=== PATIENT | male | born 1960 | race American Indian/Alaskan Native ===

== ENCOUNTER 2016-07-01 08:39 | Inpatient (IN) | payer OTHER ==
[2016-07-01 08:56] VITALS: BMI 19.2
[2016-07-01] MEDS ORDERED: Albuterol-Ipratrop 3 mg / 0.5 (3 ml) UD IH STA ×2 (09:00→12:06)
--- NOTE | 2016-07-01 09:01 | ED PDOC ---
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 Patient states his symptoms is exacerbated when laying down flat. Patient notes fevers at night but denies any nausea, vomiting, diarrhea, abdominal pain, urinary symptoms, chest pain, cough or any other complaints. Patient reports his oncologist changed his medications 1 month ago. Denies hemoptysis. Denies headaches. Denies new leg pain or swelling. States symptoms have worsened since starting new chemotherapy several months ago. Denies bloody or dark urine or stool. PMD: Dr. Glover Oncologist: Dr. Cool Time/Duration: Other (1 month) Symptom Course: Worsening Quality: Other Context: Home Past Medical History - Provider Review Nursing Documentation Reviewed: Yes - Infectious Disease Hx of Infectious Diseases: None - Tetanus Immunization Tetanus Immunization: Unknown - Cardiac Hx Cardiac Disorders: Yes - Pulmonary Hx Lung Cancer: Yes - Neurological Hx Neurological Disorder: Yes Other/Comment: Syncopy 2013 - HEENT Hx HEENT Disorder: Yes Other/Comment: Wears glasses - Hematological/Oncological Hx Blood Transfusions: No Hx Blood Transfusion Reaction: No - Musculoskeletal/Rheumatological Hx Falls: Yes (2012) - Genitourinary/Gynecological Hx Genitourinary Disorders: Yes Other/Comment: Urinary retention - Psychiatric Hx Depression: No Hx Emotional Abuse: No Hx Physical Abuse: No Hx Substance Use: No - Surgical History Other/Comment: Rt. Facial - Anesthesia Hx Anesthesia Reactions: No - Suicidal Assessment Feels Threatened In Home Enviroment: No Family/Social History - Physician Review Nursing Documentation Reviewed: Yes Family/Social History: No Known Family HX Smoking Status: Never Smoked Hx Alcohol Use: No Hx Substance Use: No Hx Substance Use Treatment: No Allergies/Home Meds Allergies/Adverse Reactions: Allergies No Known Allergies Allergy (Verified 07/01/16 08:56) Home Medications: Home Meds Medication Instructions Recorded Confirmed Acyclovir [Zovirax] 400 mg PO DAILY 07/01/16 07/01/16 Calcium Citrate 1,000 mg PO DAILY 07/01/16 07/01/16 Dutasteride 0.5 mg PO DAILY 07/01/16 07/01/16 Megestrol Acetate [Megace] 40 mg PO DAILY 07/01/16 07/01/16 Multivitamin with Minerals [Men's 1 each PO DAILY 07/01/16 07/01/16 One Daily] Polyethylene Glycol 3350 [Laxa 1,530 gm PO PRN PRN 07/01/16 07/01/16 Clear] Silodosin [Rapaflo] 8 mg PO DAILY 07/01/16 07/01/16 oxyCODONE [oxycodone Hydrochloride] 20 mg PO PRN PRN 07/01/16 07/01/16 Review of Systems - Review of Systems Constitutional: Fatigue, Fevers Eyes: absent: Vision Changes ENT: absent: Hearing Changes, Sore Throat Respiratory: SOB. absent: Cough, Wheezing Cardiovascular: Palpitations, MALONEY. absent: Chest Pain, Edema Gastrointestinal: Appetite Changes. absent: Abdominal Pain, Diarrhea, Nausea, Vomiting, Hematochezia Genitourinary Male: absent: Dysuria, Frequency Musculoskeletal: Arthralgias. absent: Back Pain Skin: absent: Rash Neurological: absent: Headache, Dizziness, Focal Weakness, Gait Changes Endocrine: absent: Polyuria Physical Exam - Physical Exam Narrative Physical Exam (Text): Head: Atraumatic. Facial asymmetry likely secondary to underlying cancer. Eyes: PERRL. EOMI. Conjunctivae are not pale. ENT: Dry membranes are moist and intact. Oropharynx is clear and symmetric. No drooling. No pharyngeal erythema or exudates. Neck: Supple. Full ROM. No JVD. No lymphadenopathy. No meningeal signs. Cardiovascular: Tachycardic. Regular rhythm. No murmurs, rubs, or gallops. Distal pulses are 2+ and symmetric. Pulmonary/Chest: Tachypneic. Wheezing and rales at bases. No rhonchi. Abdominal: Soft and non-distended. There is no tenderness. No rebound, guarding, or rigidity. No organomegaly. Good bowel sounds. Back: No CVA tenderness. Extremities: No edema. No calf tenderness. No cyanosis. No clubbing. Full range of motion in all extremities. No calf tenderness. Skin: Skin is warm and dry. No petechiae. No purpura. Neurological: Alert, awake, and oriented. Motor and sensory exam intact. Psychiatric: Good eye contact. Normal interaction, affect, and behavior. 07/01/16 14:20 Vital Signs Reviewed: Yes Vital Signs Temp Pulse Resp BP Pulse Ox 07/01/16 14:25 98.9 F 112 H 20 98/67 L 07/01/16 13:59 98.2 F 114 H 20 106/57 L 100 07/01/16 13:00 122 H 20 140/68 98 07/01/16 12:00 98.6 F 120 H 20 114/66 96 07/01/16 10:40 98.2 F 118 H 22 106/70 97 07/01/16 09:14 98.0 F 117 H 24 108/74 90 L Temperature: Afebrile Pulse: Tachycardic Respiratory Rate: Tachypneic Appearance: Positive for: Non-Toxic, Comfortable, Ill-Appearing Pain Distress: Mild Mental Status: Positive for: Alert and Oriented X 3 Medical Decision Making ED Course and Treatment: 07/01/16 08:57 Impression: A 56 year old male with worsening shortness of breath. Has history of metstatic cancer, followed by Dr. Cool. Differential Diagnosis included but are not limited to: CHF vs. CAD vs. PNA vs. PE vs. Arrhythmia vs. Sepsis Plan: -- Chest xray -- EKG -- Labs -- Blood and Urine culture -- Urinalysis -- Duoneb and IV fluids -- Reassess and disposition Progress Notes: Patient on initial examination has family members present, supplements history. On examination he is tachypneic, tachycardic, hypoxic. Placed on supplemental oxygen. Patient with improved saturations. Denies chest pain. Reports chronic bony pain from cancer. Afebrie in ED. Denies pleuritic pain. Nebulizers administered. Abnormal chest xray reviewed: Report Date : 07/01/2016 09:12:21 Procedure: Chest xray Dictator : Bogdan Sandoval MD IMPRESSION: Bilateral pulmonary infiltrates, more extensive on the right. Bilateral pneumonia versus pulmonary edema. Small bilateral pleural effusion. Permanent pacemaker. I discussed abnormal chest xray with patient and patient's /family, ddx includes pneumonia, mediation induced pneumonities. Ordered CT angio for persistent tachycardia. Patient noted to be anemic, but no rectal bleeding or hemoptysis or hematuria reported. 07/01/16 11:[address] Clifford Cool, patients oncologist, who informs patients hgb is normally around 8.5. He reports patients chemotherapy medication can cause pneumonitis. He agrees with blood transfusion given persistent symptoms and prior history. This was discussed in length with family and patient, risks/benefits discussed with patient, agreeable to transfusion has signed consent. Report Date : 07/01/2016 12:54:41 PROCEDURE: CT Chest with contrast (Pulmonary Angiogram) Dictator : Bogdan Sandoval MD IMPRESSION: No evidence of large central pulmonary embolus. Evaluation for segmental and subsegmental pulmonary embolus is limited as detailed above. Diffuse right lower lobe ground-glass opacity. Multifocal right middle and right upper lobe ground-glass opacity and left upper lobe ground-glass opacity. Multifocal soft tissue densities in right lower lobe as well as small nodular soft tissue densities in left upper lobe, suspicious for neoplasm. Pleural- based soft tissue mass medial left upper lobe. Mediastinal and left hilar lymphadenopathy noted. Left pleural effusion and left lower lobe compressive atelectasis. Extensive widespread sclerotic bony metastasis. . I have updated patient and family with treatment plan and labs, xray findings. CT angio does not reveal large PE. Ground glass opacities noted. Given tachypnea and tachycardia, business architect consultation obtained, at this time will be admitted to telemetry. Case d/w Dr. Mckeon, covering for patient's PMD. Initial lactate unremarkable, afebrile, current exam not consistent with sepsis although risk noted. Reassessment Condition: Improving,but remains with symptoms - Lab Interpretations Lab Results: 07/01/16 09:00 07/01/16 09:00 Lab Results 07/01/16 10:07: Blood Type O POSITIVE, Antibody Screen Negative, Crossmatch See Detail, BBK History Checked Patient has bt 07/01/16 09:30: pO2 129 H, VBG pH 7.45 H, VBG pCO2 27.0 L, VBG HCO3 18.8 L, VBG Total CO2 19.6 L, VBG O2 Sat (Calc) 98.9 H, VBG Base Excess -3.8 L, VBG Potassium 3.0 L, Glucose 77, Lactate 0.8, FiO2 32.0, Sodium 141.0, Chloride 117.0 H, Venous Blood Potassium 3.0 L 07/01/16 09:00: Sodium 136, Potassium 3.7, Chloride 105, Carbon Dioxide 22, Anion Gap 13, BUN 9, Creatinine 0.7, Est GFR ( Amer) > 60, Est GFR (Non- Af Amer) > 60, Random Glucose 99, Calcium 8.3 L, Total Bilirubin 0.7, AST 49, ALT 26, Alkaline Phosphatase 212 H, Lactate Dehydrogenase 983 H, Total Creatine Kinase 370 H, CK-MB (CK-2) 2.6, CK-MB (CK-2) % Cancelled, Troponin I < 0.01, NT- Pro-B Natriuret Pep 313, Total Protein 6.9, Albumin 3.5, Globulin 3.4, Albumin/ Globulin Ratio 1.0 L 07/01/16 09:00: PT 13.4 H, INR 1.24 H, APTT 32.2 H 07/01/16 09:00: WBC 4.3 L, RBC 2.77 L, Hgb 7.7 L D, Hct 23.7 L, MCV 85.6, MCH 27.8, MCHC 32.5, RDW 24.3 H, Plt Count 156, MPV 9.3, Gran % 53.9, Lymph % (Auto ) 33.9, Mcdonald % (Auto) 9.2 H, Eos % (Auto) 1.4 L, Baso % (Auto) 1.6, Gran # 2.29 , Lymph # 1.4, Mcdonald # 0.4, Eos # 0.1, Baso # 0.07 I have reviewed the lab results: Yes - RAD Interpretation Radiology Orders: 07/01/16 08:59 CHEST PORTABLE [RAD] Stat 07/01/16 11:27 ANGIO CHEST PE PROTOCOL [CT] Stat [facility] Aide: Radiologist - EKG Interpretation EKG Interpretation (Text): 07/01/16 14:23 EKG at 08:58 sinus tachycardia, minimal voltage criteria for LVH Interpreted by ED Physician: Yes Type: 12 lead EKG - Medication Orders Current Medication Orders: Sodium Chloride (Sodium Chloride 0.9%) 1,000 mls @ 100 mls/hr IV .Q10H EDEL Last Admin: 07/01/16 09:20 Dose: 100 mls/hr Discontinued Medications Albuterol/Ipratropium (Duoneb 3 Mg/0.5 Mg (3 Ml) Ud) 3 ml IH STAT STA Stop: 07/01/16 09:01 Last Admin: 07/01/16 09:56 Dose: 3 ml Albuterol/Ipratropium (Duoneb 3 Mg/0.5 Mg (3 Ml) Ud) 3 ml IH STAT STA Stop: 07/01/16 12:07 Last Admin: 07/01/16 12:47 Dose: 3 ml Cefepime HCl (Maxipime 2gm) 2 gm in 100 mls @ 100 mls/hr IVPB STAT STA PRN Reason: Protocol Stop: 07/01/16 10:31 Last Admin: 07/01/16 09:56 Dose: 100 mls/hr Azithromycin (Zithromax 500mg In Ns) 500 mg in 250 mls @ 166.667 mls/hr IVPB STAT STA PRN Reason: Protocol Stop: 07/01/16 11:03 Last Admin: 07/01/16 11:27 Dose: 166.667 mls/hr Sodium Chloride (Sodium Chloride 0.9%) 500 mls @ 1,000 mls/hr IV .Q30M STA Stop: 07/01/16 11:40 Last Admin: 07/01/16 11:30 Dose: 1,000 mls/hr Iodixanol (Visipaque 320 Mg/Ml 100 Ml) Confirm Administered Dose 100 ml IV .STK- MED ONE Stop: 07/01/16 11:55 - Scribe Statement The provider has reviewed the documentation as recorded by the Scribe Mona Shane Provider Scribe Attestation: All medical record entries made by the Scribe were at my direction and personally dictated by me. I have reviewed the chart and agree that the record accurately reflects my personal performance of the history, physical exam, medical decision making, and the department course for this patient. I have also personally directed, reviewed, and agree with the discharge instructions and disposition. Disposition/Present on Arrival - Present on Arrival Any Indicators Present on Arrival: No History of DVT/PE: No History of Uncontrolled Diabetes: No Urinary Catheter: No History Surgical Site Infection Following: None - Disposition Have Diagnosis and Disposition been Completed?: Yes Diagnosis: Pneumonitis, Pneumonia, Anemia, Metastatic cancer Disposition: HOSPITALIZED Disposition Time: 10:00 Patient Plan: Admission, ICU Patient Problems: Current Active Problems Problem Status Onset Anemia Acute Metastatic cancer Acute Pneumonia Acute Pneumonitis Acute Condition: CRITICAL
--- NOTE | 2016-07-01 09:13 | RAD ---
HISTORY: sob COMPARISON: 11/18/2015 FINDINGS: LUNGS: Diffuse patchy right-sided pulmonary infiltrate and left basilar infiltrate. PLEURA: Probable very small bilateral pleural effusion. No pneumothorax. CARDIOVASCULAR: Normal heart size. Mild congestive change. Permanent pacemaker. OSSEOUS STRUCTURES: No significant abnormalities. VISUALIZED UPPER ABDOMEN: Normal. OTHER FINDINGS: None. IMPRESSION: Bilateral pulmonary infiltrates, more extensive on the right. Bilateral pneumonia versus pulmonary edema. Small bilateral pleural effusion. Permanent pacemaker.
[2016-07-01] MEDS: Sodium Chloride 0.9% 1,000 ML IV SCH ×3 (09:20→21:35)
[2016-07-01] MEDS ORDERED: Cefepime IV 2 gm in NS 2 GM/100 ML BAG IVPB STA (09:32)
[2016-07-01] MEDS ORDERED: Azithromycin 500MG/NS 250ml 250 ML IVPB STA (09:33)
[2016-07-01] MEDS ORDERED: Azithromycin 500MG/NS 250ml 500 MG/250 ML BAG IVPB STA (09:34)
[2016-07-01 09:39] LABS: ADD MANUAL DIFF? NO
[2016-07-01 09:40] LABS: VENOUS BLOOD GAS BASE EXCESS -3.8 mmol/L (0.0-2.0); VENOUS BLOOD PH 7.45 (7.32-7.43)
[2016-07-01 09:47] LABS: BASO # 0.07 K/mm3 (0.0-2.0); BASO % 1.6 % (0.0-3.0); EOS # 0.1 (0.0-0.7); EOS % 1.4 % (1.5-5.0); GRAN # 2.29 (1.4-6.5); GRAN % 53.9 % (50.0-68.0); LYMPH # 1.4 (1.2-3.4); LYMPH % 33.9 % (22.0-35.0); MEAN CELL VOLUME 85.6 fL (80.0-105.0); MEAN CORPUSCULAR HEMOGLOBIN 27.8 pg (25.0-35.0); MEAN CORPUSCULAR HGB CONC 32.5 g/dl (31.0-37.0); MEAN PLATELET VOLUME 9.3 fl (7.0-11.0); MONO # 0.4 (0.1-0.6); MONO % 9.2 % (1.0-6.0); PLATELET COUNT 156 10^3/uL (120.0-450.0); RED CELL DISTRIBUTION WIDTH 24.3 % (11.5-14.5); WHITE BLOOD COUNT 4.3 10^3/ul (4.5-11.0)
[2016-07-01 09:49] LABS: HEMATOCRIT 23.7 % (42.0-52.0)
[2016-07-01 10:01] LABS: ALKALINE PHOSPHATASE 212 U/L (38-133); ALT/SGPT 26 U/L (7-56); AST/SGOT 49 U/L (15-59); BILIRUBIN,TOTAL 0.7 mg/dL (0.2-1.3); BLOOD UREA NITROGEN 9 mg/dL (7-21); CALCIUM 8.3 mg/dL (8.4-10.5); CARBON DIOXIDE 22 mmol/L (21-33); CHLORIDE 105 mmol/L (98-107); GFR AFRICAN-AMERICAN > 60; GLUCOSE,RANDOM 99 mg/dL (70-110); INR 1.24 (0.93-1.08); PARTIAL THROMBOPLASTIN TIME 32.2 Seconds (23.7-30.8); POTASSIUM 3.7 mmol/L (3.6-5.0); SODIUM 136 mmol/L (132-148); TOTAL PROTEIN 6.9 g/dL (5.8-8.3)
[2016-07-01 10:18] LABS: TROPONIN I < 0.01 ng/mL
[2016-07-01] MEDS ORDERED: Sodium Chloride 0.9% 500 ML IV STA (11:11)
[2016-07-01] MEDS ORDERED: Iodixanol 320 MG/ML 100 ML BOTTLE IV ONE (11:54)
--- NOTE | 2016-07-01 12:37 | CARD ---
APPROVED REPORT EKG Measurement Heart [id number] [id number] <Conclusion> Sinus tachycardia Minimal voltage criteria for LVH, may be normal variant Borderline ECG
--- NOTE | 2016-07-01 12:56 | CT ---
PROCEDURE: CT Chest with contrast (Pulmonary Angiogram) HISTORY: r/o PE COMPARISON: None available. TECHNIQUE: Axial computed tomography images were obtained of the chest in the pulmonary arterial phase of enhancement. Coronal and sagittal reformatted images were created and reviewed. Intravenous contrast dose: 100 mL Visipaque 320 Radiation dose: Total exam DLP = 366.35 mGy-cm. This CT exam was performed using one or more of the following dose reduction techniques: Automated exposure control, adjustment of the mA and/or kV according to patient size, and/or use of iterative reconstruction technique. FINDINGS: PULMONARY ARTERIES: Examination limited for evaluation of segmental and subsegmental pulmonary artery branches due to respiratory motion artifact as well as due to beam hardening artifact arising from permanent pacemaker. No central or lobar pulmonary artery filling defect identified. AORTA: No acute findings. No thoracic aortic aneurysm. LUNGS: Extensive right lower lobe ground-glass opacity. Multifocal soft tissue density in right lower lobe suspicious for neoplasm or lamar consolidation from pneumonia. Multifocal ground-glass opacity right middle lobe and right upper lobe which may reflect infectious or inflammatory etiology. Mild multifocal left upper lobe ground-glass opacity as well as small soft tissue densities. Large pleural-based soft tissue mass in the left upper lobe, medially, measuring approximately 4.3 x 2.4 x 3.6 cm. There is left lower lobe compressive atelectasis. PLEURAL SPACES: Moderate left pleural effusion. Trace right pleural effusion. No pneumothorax. HEART: Normal heart size. LYMPH NODES: Left hilar lymphadenopathy. Mediastinal lymphadenopathy noted in the prevascular space sub carinal peritracheal space. . BONES, CHEST WALL: Extensive widespread sclerotic metastasis all visualized osseous structures. OTHER FINDINGS: Unremarkable. IMPRESSION: No evidence of large central pulmonary embolus. Evaluation for segmental and subsegmental pulmonary embolus is limited as detailed above. Diffuse right lower lobe ground-glass opacity. Multifocal right middle and right upper lobe ground-glass opacity and left upper lobe ground-glass opacity. Multifocal soft tissue densities in right lower lobe as well as small nodular soft tissue densities in left upper lobe, suspicious for neoplasm. Pleural-based soft tissue mass medial left upper lobe. Mediastinal and left hilar lymphadenopathy noted. Left pleural effusion and left lower lobe compressive atelectasis. Extensive widespread sclerotic bony metastasis. .
[2016-07-01] MEDS ORDERED: Potassium Chloride 20 mEq ER Tab PO ONE ×3 (15:10→20:30)
[2016-07-01] MEDS ORDERED: oxyCODONE 20 mg Immediate Release Tab PO PRN (15:35)
[2016-07-01] MEDS ORDERED: POLYETHYLENE GLYCOL 3350 17 GM/Dose PACKET PO PRN ×2 (15:56→16:05)
[2016-07-01] MEDS ORDERED: Albuterol-Ipratrop 3 mg / 0.5 (3 ml) UD IH PRN (16:30)
[2016-07-01] MEDS: Cefepime 1gm in NS 100ml 1 GM/100 ML BAG IVPB SCH (21:33)
[2016-07-01] MEDS: oxyCODONE 20 mg Immediate Release Tab PO PRN (21:36)
--- NOTE | 2016-07-01 21:38 | CON ---
DATE: 07/01/2016 REASON FOR CONSULTATION: Severe anemia, stage IV, head and neck cancer. HISTORY OF PRESENT ILLNESS: The patient is a 56-year-old male admitted to the hospital with worsening shortness of breath. 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 He has received several chemotherapeutic regimens including Erbitux. Recently he got Keytruda. He got 2 doses of Keytruda. He has worsening shortness of breath. CAT scan of the chest showed bilateral lung masses and infiltrates. He has chronic pain in the ribs and the jaw, for which he takes oxycodone and morphine. He did not have a BM for more than a week now. Appetite has decreased. He has lost weight. He feels fatigued. Denies any bleeding from any site. No fever. No cough with expectoration. No abdominal pain. No nausea, no vomiting. He has history of syncope, none recent. He also has history of enlarged prostate, currently on Flomax. No issues with urination. PAST MEDICAL HISTORY: Head and neck cancer, recurrent falls, syncope. PAST SURGICAL HISTORY: Related to head and neck cancer, right side of the face , resection of the tumor. FAMILY HISTORY: No positive family history in mother and father. PERSONAL HISTORY: Never smoked. No history of alcohol abuse. SOCIAL HISTORY: Lives at home with . ALLERGIES: No known drug allergies. HOME MEDICATIONS: Acyclovir 400 mg daily, Megace 40 mg daily, multivitamin, Rapaflo, oxycodone 20 mg p.r.n., morphine sulfate p.r.n. REVIEW OF SYSTEMS: As per HPI. Rest of 12-point system reviewed and negative. PHYSICAL EXAMINATION: GENERAL: Comfortable in bed, mild respiratory distress. VITAL SIGNS: Temperature 98 degrees Fahrenheit, heart rate is 117 per minute, respiratory rate 24 per minute, blood pressure 108/74, heart rate is 70 per minute, cachectic, tachypneic, tachycardia . HEENT: Oral mucosa moist. NECK: No lymphadenopathy. HEART: Tachycardia present. S1, S2 normal. CHEST: Air entry present, bilateral. Bilateral crepitations present. Bilateral rhonchi present. ABDOMEN: Soft, nontender, no hepatosplenomegaly. EXTREMITIES: No edema. CENTRAL NERVOUS SYSTEM: Alert, oriented x 3. No focal sensory or motor deficit. SKIN: No petechia, no rash. SPINE: Nontender. LABORATORY DATA: White count 4.3, hemoglobin 7.7, hematocrit 23.7, platelet count 156. Sodium 136, potassium 3.7, BUN 9, creatinine 0.7, glucose 99. CAT scan of the chest as per HPI. Chest x-ray bilateral infiltrate present. ASSESSMENT: 1. Severe anemia. 2. Stage IV head and neck cancer. 3. Bilateral lung infiltrate, possible pneumonitis related to chemo, infectious pneumonitis, bilateral. He has metastatic lesion in the lungs also. 4. Constipation related to narcotics. PLAN: Two units of blood transfusion. He received 1 unit so far. He will receive second dose of PRBCs. Bilateral lung infiltrates. Differential diagnosis chemical pneumonitis related to chemo, Keytruda, or infectious pneumonitis. He also has bilateral lung metastatic disease. He received a dose of cefepime and Zithromax in the ER. We will consult ID. We will start high dose steroids, Solu-Medrol 30 mg IV q. 12 hours. We will continue acyclovir 400 mg oral b.i.d. for herpes prophylaxis. Continue bronchodilator, Xopenex q. 4 hours p.r.n. We will give IV fluid as blood pressure was a little low. He is dehydrated clinically, at 100 mL an hour. Pain control with morphine sulfate 15 mg p.o. b.i.d., and oxycodone p.r.n. for severe pain. He can get morphine sulfate IV 2 mg q. 4 hours p.r.n. He has chronic constipation. Will give lactulose tomorrow. We will continue MiraLax for now. Discussed with the . Discussed with the patient. Thank you, Dr. Mckeon, for allowing us to participate in the patient's care. Hillary Ardon MD cc: [id number] TT: 07/01/2016 21:37:53 Confirmation # [id number] Dictation # [id number] silvestre [email or web address]
[2016-07-01] MEDS: MethylPREDNISolone 40 mg Vial IVP SCH (21:41)
[2016-07-01 22:35] LABS: PH,URINE 6.5 (4.7-8.0); URINE APPEARANCE CLEAR (CLEAR); URINE BILIRUBIN NEGATIVE (NEGATIVE); URINE BLOOD SMALL (NEGATIVE); URINE COLOR YELLOW (YELLOW); URINE GLUCOSE (UA) NEGATIVE (NEGATIVE); URINE KETONE NEGATIVE (NEGATIVE); URINE LEUKOCYTE ESTERASE NEGATIVE Leu/uL (NEGATIVE); URINE PROTEIN NEGATIVE mg/dL (<30 mg/dL); URINE UROBILINOGEN 0.2 E.U./dL (<1 E.U./dL)
[2016-07-01 22:49] LABS: URINE EPITHELIAL CELLS 0 - 2 /hpf (0-5); URINE WBC 0 - 2 /hpf (0-6)
[2016-07-02] MEDS: oxyCODONE 20 mg Immediate Release Tab PO PRN ×4 (01:58→19:00)
[2016-07-02] MEDS: Cefepime 1gm in NS 100ml 1 GM/100 ML BAG IVPB SCH ×3 (06:31→22:27)
[2016-07-02 06:48] LABS: ADD MANUAL DIFF? NO
[2016-07-02 07:19] LABS: ALB/GLOB RATIO 1.1 (1.1-1.8); ALKALINE PHOSPHATASE 202 U/L (38-133); ALT/SGPT 21 U/L (7-56); AST/SGOT 39 U/L (15-59); BILIRUBIN,TOTAL 1.2 mg/dL (0.2-1.3); BLOOD UREA NITROGEN 11 mg/dL (7-21); CALCIUM 7.1 mg/dL (8.4-10.5); CARBON DIOXIDE 21 mmol/L (21-33); CHLORIDE 110 mmol/L (98-107); CHOLESTEROL 130 mg/dL (130-200); GFR AFRICAN-AMERICAN > 60; GLUCOSE,RANDOM 122 mg/dL (70-110); MAGNESIUM 1.8 mg/dL (1.7-2.2); POTASSIUM 4.6 mmol/L (3.6-5.0); SODIUM 138 mmol/L (132-148); TOTAL PROTEIN 6.7 g/dL (5.8-8.3)
--- NOTE | 2016-07-02 07:21 | CON ---
DATE: 07/01/2016 REASON FOR CONSULTATION AND FOLLOWUP: Shortness of breath, rule out congestive heart failure, severe ly anemic. 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 PAST MEDICAL HISTORY: Significant for Staphylococcus aureus sepsis, status post RONEY, negative for en docarditis. PAST SURGICAL HISTORY: Significant for surgery of the maxillary sinus squamous cell carcinoma and quesada d reconstruction of the right side of the face, history of lung biopsy. Previous cardiac workup as follows: The patient had echocardiography/RONEY 11/21/2012 that showed norm al LV size, ejection fraction 65%, normal segmental wall motion, trace aortic regurgitation, no evide nce of mitral valve prolapse, trace to mild tricuspid regurgitation, RV systolic pressure 26, moderat e mitral regurgitation. PPM pacemaker lead noted in RA consistent with a ____. SOCIAL HISTORY: Denies smoking. Denies any history of alcohol abuse. FAMILY HISTORY: Hypertension to his brother. ALLERGIES: The patient has no known drug allergy. CURRENT MEDICATIONS: The patient is taking oxycodone, Rapaflo, multivitamin, Megace, acyclovir. REVIEW OF SYSTEMS: A 14-point review of systems as per HPI, negative. PHYSICAL EXAMINATION: VITAL SIGNS: Temperature afebrile, heart rate 111, blood pressure 123/70. HEENT: PERRLA. Extraocular muscles intact. NECK: Supple. No carotid bruits. No thyromegaly. CHEST: Clear to auscultation. HEART: S1, S2 regular. ABDOMEN: Soft. EXTREMITIES: Clubbing and cyanosis negative. LABORATORY DATA: Blood workup as follows: WBC 4.3, hemoglobin 7.7, hematocrit 23.7, platelet count 156. Chemistry shows sodium 130, potassium 3.0, chloride 105, carbon dioxide 23, anion gap of 13, BU N 9, creatinine 0.7. Troponin 0.01. IMPRESSION: Severe anemia, squamous cell carcinoma stage IV with metastasis, preserved left ventricu lar function, but last echo 11/2015, moderate mitral regurgitation, trace tricuspid regurgitation, ri ght ventricular systolic pressure 26, trace aortic regurgitation. RECOMMENDATION: The patient got 2 units of blood. We will give Lasix 40 after each unit of blood. Supplement potassium. We will get a lipid profile, TSH, hemoglobin A1c. We will follow with you. P robably, these symptoms secondary to anemia and underlying lung condition. Chest x-ray reviewed, suresh ateral pulmonary infiltrate ____ the right, small bilateral pleural effusion noted. CT chest was don e that shows no evidence of large PE; multifocal soft tissue density within the right lower lobe, ___ _ of malignancy. Probably, the sinus tachycardia also multifactorial too. We will put some beta blo cker, broad spectrum antibiotic. We will follow with you. Thank you, Dr. Mckeon, for providing the opportunity in taking care of the patient. Derrick Louis MD cc: [id number] TT: 07/02/2016 07:20:54 Confirmation # [id number] Dictation # [id number] tn
[2016-07-02 07:48] LABS: BASO # 0.03 K/mm3 (0.0-2.0); BASO % 0.7 % (0.0-3.0); EOS % 0.7 % (1.5-5.0); GRAN # 3.28 (1.4-6.5); GRAN % 76.2 % (50.0-68.0); HEMATOCRIT 29.2 % (42.0-52.0); LYMPH # 0.6 (1.2-3.4); LYMPH % 14.7 % (22.0-35.0); MEAN CELL VOLUME 83.9 fL (80.0-105.0); MEAN CORPUSCULAR HEMOGLOBIN 27.6 pg (25.0-35.0); MEAN CORPUSCULAR HGB CONC 32.9 g/dl (31.0-37.0); MEAN PLATELET VOLUME 9.2 fl (7.0-11.0); MONO # 0.3 (0.1-0.6); MONO % 7.7 % (1.0-6.0); PLATELET COUNT 137 10^3/uL (120.0-450.0); RED CELL DISTRIBUTION WIDTH 21.5 % (11.5-14.5); WHITE BLOOD COUNT 4.3 10^3/ul (4.5-11.0)
--- NOTE | 2016-07-02 08:29 | CON ---
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 The patient reports that he also felt wheezing. His symptoms were getting worse upon exertion. Some subjective fevers, but no nausea, vomiting, diarrhea, or constipation. No cough, no sputum production. PAST MEDICAL HISTORY: Hypertension, sinus cancer with mets. SOCIAL HISTORY: The patient is a lifelong nonsmoker. No alcohol or illicit drug abuse. FAMILY HISTORY: Noncontributory. ALLERGIES: NKDA. MEDICATIONS AT HOME: Oxycodone, PhosLo, multivitamins, Zovirax, calcium, Megace , dutasteride, acyclovir. REVIEW OF SYSTEMS: Revealed 12 organ system other than mentioned in history of present illness is negative. PHYSICAL EXAMINATION: VITAL SIGNS: Heart rate 115, blood pressure 106/57, respiratory rate 20, oxygen saturation 100% on 2 liters nasal cannula, temperature 98.2. HEAD AND NECK: Atraumatic. LUNGS: Clear to auscultation bilaterally. HEART: Regular rate and rhythm. S1, S2 normal. ABDOMEN: Soft, nontender, nondistended. MUSCULOSKELETAL: No C/C/E. NEUROLOGIC: The patient moves all extremities spontaneously. SKIN: Moist. PSYCHIATRIC: The patient is alert and oriented x 3. LABORATORY DATA: Sodium 136, potassium 3.7, chloride 105, carbon dioxide 22, BUN 9, creatinine 0.7, glucose 99, AST 49, ALT 26. Troponin less than 0.01. ProBNP 313. Lactate 0.8, pH 7.45. CAT scan showed ground glass opacities bilaterally intermingled with patchy consolidation. EKG did not show any acute ischemic changes. Based on the CAT scan, no pulmonary embolism. ASSESSMENT AND PLAN: This is a 56-year-old gentleman who presented to community -acquired pneumonia in the setting of recent chemotherapy and metastatic cancer. At the present time, he is mildly tachycardic and tachypneic which warrants admission to some monitored setting. Telemetry would be appropriate. However, at present time, we will proceed with broad spectrum antibiotics to cover for multidrug resistant pathogens as well as atypical pathogens. I will proceed with blood, urine and sputum culture. I will proceed with urine lwgionwlla and streptococcal antigen . Infectious disease consult would be reasonable. A pulmonary consult would be reasonable as well. I will also order CRP to see if additional benefit of low dose steroids would be there. No need for MICU at present time; however, if the patient deteriorates and develops respiratory failure or hemodynamic instability, or any other questions arise, please reconsult ICU. We will continue with deep venous thrombosis prophylaxis. We will continue to target euvolemia, euglycemia, normothermia and oxygen saturation more than 90%. ccm time 40 min Trevor Parker MD cc: [id number] TT: 07/01/2016 15:04:54 Confirmation # [id number] Dictation # [id number] dn MTDD
[2016-07-02] MEDS: Sodium Chloride 0.9% 1,000 ML IV SCH ×2 (08:31→20:41)
[2016-07-02] MEDS: Multivitamin Therapeutic Tab PO SCH (10:16)
[2016-07-02] MEDS: MethylPREDNISolone 40 mg Vial IVP SCH ×2 (10:57→22:28)
--- NOTE | 2016-07-02 11:36 | PN ---
DATE: 07/02/2016 REASON FOR CONSULTATION AND FOLLOWUP: Shortness of breath, rule out congestive heart failure; severe ly anemic, status post RBC transfusion. 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 Feels a lot better. Still feels mild congestion, but better than b efore. History of RONEY, was negative for endocarditis. RONEY dated 11/22/2015 shows ejection fraction 65%, normal segmental wall motion, trace aortic regurgitation, ____ tricuspid regurgitation, RV systo lic pressure at 26, moderate mitral regurgitation, history of pacemaker. PHYSICAL EXAMINATION: VITAL SIGNS: Temperature afebrile, heart rate 97, blood pressure 100/69. HEENT: PERRLA. Extraocular muscles intact. NECK: Supple. No carotid bruits. No thyromegaly. CHEST: Clear to auscultation. HEART: S1, S2 regular. ABDOMEN: Soft. EXTREMITIES: Clubbing and cyanosis negative. BLOOD WORKUP: As follows: WBC 4.____, hemoglobin 9.6, hematocrit 29.2, platelet count 137. Pelt Dropper ry shows sodium 136, potassium 4.____, chloride 110, carbon dioxide 21, anion gap of 12, BUN 11, crea tinine 0.7. Random sugar 122. TSH 0.6. Total cholesterol 130, LDL 69, HDL 40, triglycerides 69. T roponin 0.01. IMPRESSION: Anemia, status post packed red blood cell transfusion; decompensated congestive heart fa ilure secondary to anemia, diastolic dysfunction, preserved left ventricular function, moderate carlo l regurgitation, ____ tricuspid regurgitation, ejection fraction 65% on transesophageal echocardiogra m dated 11/22/2015, ____ tricuspid regurgitation, right ventricular systolic pressure at 26. Squamou s cell carcinoma with maxillary sinus with metastasis. RECOMMENDATION: Will give Lasix extra dose now. Supplement potassium. Discontinue telemetry. Thank you, Dr. Mckeon, for providing the opportunity in taking care of the patient. Will give 40 o f Lasix, supplement potassium again, and discontinue telemetry. Derrick Louis MD cc: [id number] TT: 07/02/2016 10:58:44 Confirmation # [id number] Dictation # [id number] 07/02/2016 10:35:16
--- NOTE | 2016-07-02 12:21 | CON ---
DATE: 07/02/2016 Seen and examined at the bedside this morning. REQUEST FOR CONSULT: Anemia. The chart was reviewed. HISTORY OF PRESENT ILLNESS: This is a 56-year-old male with a history of stage IV head and neck canc er, syncope, with mets to the bone and lung. Came to the Emergency Room with complaints of shortness of breath. The patient had a CAT scan of the chest showing bilateral lung masses and infiltrates. He does complain of rib and jaw pain which is chronic and is on pain medication. Does complain of co nstipation, has not had a bowel movement for over a week now. The patient was noted on admission to have low hemoglobin of 7.4. He received 2 units of packed RBC. He denies any melena or bright red b lood per rectum. No current complaints of hemoptysis or hematemesis. Never has had an endoscopy and he has refused colonoscopy in the past. The patient was on Keytruda. PAST MEDICAL HISTORY: As stated above. History of head and neck cancer with metastasis, hypertensio n, syncope. FAMILY HISTORY: Noncontributory at this time. SURGICAL HISTORY: Head and neck cancer surgery. Resection of the tumor, right side of the face. SOCIAL HISTORY: Denies ETOH or substance abuse. The patient denies smoking. ALLERGIES: No known drug allergies. MEDICATIONS: Reviewed as per MAR. REVIEW OF SYSTEMS: Systems reviewed with positive findings. He had a chest x-ray and that showed bilateral pulmonary infiltrates, more extensive on the right, bi lateral pneumonia versus pulmonary edema, small bilateral pleural effusions. Chest CT angio PE salina col showed no evidence of large central pulmonary embolism. There is diffuse right lower lobe ground glass opacity, multifocal right middle and upper lobe ground glass opacity and left upper lobe groun d glass opacity, mediastinal left hilar lymph nodes, extensive widespread sclerotic bony metastasis. VITAL SIGNS: Temperature is 98.2, blood pressure 100/69, pulse rate 96, respirations 20, 96% nasal c annula. LABORATORY DATA: WBC is 4.3, hemoglobin is 9.6, hematocrit 29.2, platelets of 137. PT is from 07/01 and this is 13.4, INR is 1.24, PTT 32.2. Sodium 138, K 4.6, BUN 11, creatinine is 0.7. Total biliru bin 1.2, AST 39, ALT 21, alk phos is 202. PHYSICAL EXAMINATION: HEENT: Sclera is anicteric. NECK: Supple. CARDIAC: S1, S2. LUNGS: Sounds with decreased breath sounds but positive air entry and positive rhonchi. ABDOMEN: With bowel sounds, soft, not distended, nontender on palpation. No organomegaly. EXTREMITIES: No edema. NEUROLOGIC: Awake, alert, and oriented. ASSESSMENT: This is a 56-year-old male with stage IV head and neck cancer with metastasis. He ____ to have bilateral lung infiltrates. Found to have severe anemia, status post blood transfusion, pack ed red blood cells. Constipation, likely secondary to narcotics. PLAN: Continue to trend H and H. He is on IV antibiotics -- cefepime, doxycycline. He is on Lasix. Bowel regimen salazar, getting lactulose and MiraLax. The patient is on morphine for pain and on IV f luids. He is also on Solu-Medrol. We will put him on some GI prophylaxis, Pepcid b.i.d. We will di scuss regarding CT scan of abdomen and pelvis with Dr. Mckeon. Thank you for this consult and for allowing us to participate in your patient's care. We will make f urther recommendations based upon patient's clinical course. The patient was seen and case discussed with Dr. Block. Mila VALLES cc: [id number] TT: 07/02/2016 12:20:23 Confirmation # [id number] Dictation # [id number] sn
[2016-07-02] MEDS: DUTASTERIDE 0.5 MG PO SCH (17:36)
--- NOTE | 2016-07-02 19:34 | CP.PCM.CON ---
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 The patient is also complaining of subjective fevers but no chills. He denies headache or dizziness, no chest pain, no rhinorrhea, no sore throat, no dysuria, no diarrhea, no abdominal pain , no extremity pain, no back pain, no hematuria. In the ED, the patient underwent CT chest which shows multifocal groundglass opacities and Infectious Diseases consult is requested to further evaluate and manage. Review of Systems - Review of Systems All systems: reviewed and no additional remarkable complaints except (as per HPI ) Past Patient History - Infectious Disease Hx of Infectious Diseases: None - Tetanus Immunizations Tetanus Immunization: Unknown - Past Social History Smoking Status: Never Smoked - CARDIAC Hx Cardiac Disorders: Yes - PULMONARY Hx Lung Cancer: Yes - NEUROLOGICAL Hx Neurological Disorder: Yes Other/Comment: Syncopy 2012 - HEENT Hx HEENT Problems: Yes Other/Comment: Wears glasses - HEMATOLOGICAL/ONCOLOGICAL Hx Blood Transfusions: No Hx Blood Transfusion Reaction: No - MUSCULOSKELETAL/RHEUMATOLOGICAL Hx Falls: Yes (2012) - GENITOURINARY/GYNECOLOGICAL Hx Genitourinary Disorders: Yes Other/Comment: Urinary retention - PSYCHIATRIC Hx Substance Use: No - SURGICAL HISTORY Other/Comment: Rt. Facial - ANESTHESIA Hx Anesthesia Reactions: No Meds Allergies/Adverse Reactions: Allergies Allergy/AdvReac Type Severity Reaction Status Date / Time No Known Allergies Allergy Verified 07/01/16 08:56 - Medications Medications: Current Medications Acyclovir (Zovirax) 400 mg PO DAILY E[facility] PRN Reason: Protocol Albuterol/Ipratropium (Duoneb 3 Mg/0.5 Mg (3 Ml) Ud) 3 ml IH [id number] PRN PRN Reason: Shortness of Breath Last Admin: 07/01/16 16:46 Dose: 3 ml Calcium Carbonate (Oscal) 1,000 mg PO DAILY EDEL Home Med (Home Med) 1 unit PO DAILY E[facility] Sodium Chloride (Sodium Chloride 0.9%) 1,000 mls @ 100 mls/hr IV .Q10H EDEL Last Admin: 07/01/16 17:01 Dose: 100 mls/hr Lactulose (Enulose) 30 gm PO HS EDEL Methylprednisolone (Solu-Medrol) 30 mg IVP Q12 [facility] Morphine Sulfate (Morphine Extended Release Tab) 15 mg PO Q12 PRN PRN Reason: Pain, severe (8-10) Multivitamins (Thera Tab) 1 tab PO DAILY EDEL Oxycodone HCl (Oxycodone Immediate Release Tab) 20 mg PO Q4H PRN PRN Reason: Pain, moderate (4-7) Polyethylene Glycol (Miralax) 17 gm PO DAILY PRN PRN Reason: Constipation Tamsulosin HCl (Flomax) 0.4 mg PO DAILY EDEL Physical Exam - Constitutional Appears: Non-toxic, No Acute Distress - Head Exam Head Exam: NORMAL INSPECTION - ENT Exam ENT Exam: Mucous Membranes Moist - Neck Exam Neck exam: Negative for: Lymphadenopathy, Meningismus - Respiratory Exam Respiratory Exam: Decreased Breath Sounds - Cardiovascular Exam Cardiovascular Exam: +S1, +S2 - GI/Abdominal Exam GI & Abdominal Exam: Soft. absent: Tenderness Results - Vital Signs Recent Vital Signs: Last Vital Signs Temp 98.4 F 07/01/16 17:58 Pulse 113 H 07/01/16 17:58 Resp 22 07/01/16 17:58 BP 130/70 07/01/16 17:58 Pulse Ox 100 07/01/16 13:59 - Labs Result Diagrams: 07/02/16 06:30 07/02/16 06:30 Assessment & Plan - Assessment and Plan (Free Text) Plan: Assessment Consider healthcare-associated pneumonia, multifocal history of persistent methicillin-sensitive Staph aureus bacteremia, most likely CLABSI (port-a-cath) S/P removal of the port, versus pacemaker lead infection/endocarditis stage 4 squamous cell cancer of the maxillary sinus with bone and lung mets S/P chemotherapy Plan reviewed CT chest which shows the multifocal groundglass opacities - started patient on Doxycycline and Cefepime pending blood, sputum cx, PCT Patient is not on chronic steroids making Pneumocystis unlikely Will follow clinically
--- NOTE | 2016-07-02 20:17 | CP.PCM.CON ---
History of Present Illness - History of Present Illness History of Present Illness: Oncology consult Referred by Dr. Mckeon for h/o head and neck cancer HPI- Mr Duque is 56 y/o M with h/o stage IV sinus cancer with mets to lung and bones who was admitted with worsening SOB and cough. CT Chest showed multifocal ground glass opacity in bilateral lungs, possible consolidation in RLL, pleural based soft tissue mass in left upper lobe, left pleural effusion and lymphadenopathy. His PET scan from 05/23/16 showed bilateral lung nodules with pleural effusion and lymphadenopathy. He was started on antibiotics for possible pneumonia. He is feeling better now. He denies any chest pain, abdominal pain, leg swelling. He has been afebrile in hospital. Regarding his malignancy, he has received Docetaxel and Erbitux before and is currently on Keytruda, last dose on 06/18 (2 doses so far) Review of Systems - Review of Systems All systems: reviewed and no additional remarkable complaints except Review of Systems: as in HPI Past Patient History - Infectious Disease Hx of Infectious Diseases: None - Tetanus Immunizations Tetanus Immunization: Unknown - Past Social History Smoking Status: Never Smoked - CARDIAC Hx Cardiac Disorders: Yes - PULMONARY Hx Lung Cancer: Yes - NEUROLOGICAL Hx Neurological Disorder: Yes Other/Comment: Syncopy 2013 - HEENT Hx HEENT Problems: Yes Other/Comment: Wears glasses - HEMATOLOGICAL/ONCOLOGICAL Hx Blood Transfusions: No Hx Blood Transfusion Reaction: No - MUSCULOSKELETAL/RHEUMATOLOGICAL Hx Falls: Yes (2012) - GENITOURINARY/GYNECOLOGICAL Hx Genitourinary Disorders: Yes Other/Comment: Urinary retention - PSYCHIATRIC Hx Substance Use: No - SURGICAL HISTORY Other/Comment: Rt. Facial - ANESTHESIA Hx Anesthesia Reactions: No Meds Allergies/Adverse Reactions: Allergies Allergy/AdvReac Type Severity Reaction Status Date / Time No Known Allergies Allergy Verified 07/01/16 08:56 - Medications Medications: Current Medications Acyclovir (Zovirax) 400 mg PO DAILY EDEL PRN Reason: Protocol Last Admin: 07/02/16 10:16 Dose: 400 mg Albuterol/Ipratropium (Duoneb 3 Mg/0.5 Mg (3 Ml) Ud) 3 ml IH [id number] PRN PRN Reason: Shortness of Breath Last Admin: 07/01/16 16:46 Dose: 3 ml Calcium Carbonate (Oscal) 1,000 mg PO DAILY EDEL Last Admin: 07/02/16 10:16 Dose: 1,000 mg Famotidine (Pepcid) 20 mg IVP DAILY [facility] Last Admin: 07/02/16 14:19 Dose: 20 mg Furosemide (Lasix) 40 mg IV DAILY [facility] Stop: 07/03/16 23:59 Last Admin: 07/02/16 10:57 Dose: 40 mg Furosemide (Lasix) 40 mg PO DAILY [facility] Home Med (Home Med) 1 unit PO DAILY [facility] Last Admin: 07/02/16 17:36 Dose: Not Given Sodium Chloride (Sodium Chloride 0.9%) 1,000 mls @ 100 mls/hr IV .Q10H [facility] Last Admin: 07/02/16 08:31 Dose: 100 mls/hr Doxycycline Hyclate 100 mg/ (Sodium Chloride) 100 mls @ 100 mls/hr IVPB Q12 [facility] PRN Reason: Protocol Stop: 07/08/16 22:01 Last Admin: 07/02/16 10:16 Dose: 100 mls/hr Cefepime HCl (Maxipime 1gm) 1 gm in 100 mls @ 100 mls/hr IVPB Q8 [facility] PRN Reason: Protocol Last Admin: 07/02/16 14:54 Dose: 100 mls/hr Lactulose (Enulose) 30 gm PO HS [facility] Last Admin: 07/02/16 10:17 Dose: 30 gm Methylprednisolone (Solu-Medrol) 30 mg IVP Q12 [facility] Last Admin: 07/02/16 10:57 Dose: 30 mg Morphine Sulfate (Morphine Extended Release Tab) 15 mg PO Q12 PRN PRN Reason: Pain, severe (8-10) Multivitamins (Thera Tab) 1 tab PO DAILY [facility] Last Admin: 07/02/16 10:16 Dose: 1 tab Oxycodone HCl (Oxycodone Immediate Release Tab) 20 mg PO Q4H PRN PRN Reason: Pain, moderate (4-7) Last Admin: 07/02/16 19:00 Dose: 20 mg Polyethylene Glycol (Miralax) 17 gm PO DAILY PRN PRN Reason: Constipation Tamsulosin HCl (Flomax) 0.4 mg PO DAILY [facility] Last Admin: 07/02/16 10:16 Dose: 0.4 mg Physical Exam - Head Exam Head Exam: ATRAUMATIC, NORMAL INSPECTION - Eye Exam Eye Exam: EOMI, PERRL - Neck Exam Neck exam: Negative for: Lymphadenopathy - Respiratory Exam Respiratory Exam: Decreased Breath Sounds, Rhonchi - Cardiovascular Exam Cardiovascular Exam: REGULAR RHYTHM - GI/Abdominal Exam GI & Abdominal Exam: Normal Bowel Sounds, Soft. absent: Organomegaly - Extremities Exam Extremities exam: Negative for: pedal edema - Neurological Exam Neurological exam: Alert, Oriented x3 Results - Vital Signs Recent Vital Signs: Last Vital Signs Temp 98.7 F 07/02/16 18:58 Pulse 102 H 07/02/16 18:58 Resp 20 07/02/16 18:58 BP 120/77 07/02/16 18:58 Pulse Ox 96 07/02/16 06:00 - Labs Result Diagrams: 07/02/16 06:30 07/02/16 06:30 Labs: Laboratory Results - last 24 hr 07/01/16 07/01/16 07/02/16 22:25 22:25 06:30 WBC 4.3 L RBC 3.48 L Hgb 9.6 L Hct 29.2 L MCV 83.9 MCH 27.6 MCHC 32.9 RDW 21.5 H Plt Count 137 MPV 9.2 Gran % 76.2 H Lymph % (Auto) 14.7 L Dickenson % (Auto) 7.7 H Eos % (Auto) 0.7 L Baso % (Auto) 0.7 Gran # 3.28 Lymph # 0.6 L Dickenson # 0.3 Eos # 0.0 Baso # 0.03 Sodium Potassium Chloride Carbon Dioxide Anion Gap BUN Creatinine Est GFR ( Amer) Est GFR (Non-Af Amer) Random Glucose Hemoglobin A1c Calcium Phosphorus Magnesium Total Bilirubin AST ALT Alkaline Phosphatase Total Protein Albumin Globulin Albumin/Globulin Ratio Triglycerides Cholesterol LDL Cholesterol Direct HDL Cholesterol TSH 3rd Generation Urine Color Yellow Urine Appearance Clear Urine pH 6.5 Ur Specific [place] 1.010 Urine Protein Negative Urine Glucose (UA) Negative Urine Ketones Negative Urine Blood Small H Urine Nitrate Negative Urine Bilirubin Negative Urine Urobilinogen 0.2 Ur Leukocyte Esterase Negative Urine RBC 5 - 10 Urine WBC 0 - 2 Ur Epithelial Cells 0 - 2 Ur L.pneumophila Ag Negative 07/02/16 07/02/16 07/02/16 06:30 06:30 06:30 WBC RBC Hgb Hct MCV MCH MCHC RDW Plt Count MPV Gran % Lymph % (Auto) Dickenson % (Auto) Eos % (Auto) Baso % (Auto) Gran # Lymph # Dickenson # Eos # Baso # Sodium 138 Potassium 4.6 Chloride 110 H Carbon Dioxide 21 Anion Gap 12 BUN 11 Creatinine 0.7 Est GFR ( Amer) > 60 Est GFR (Non-Af Amer) > 60 Random Glucose 122 H Hemoglobin A1c 6.0 Calcium 7.1 L Phosphorus 3.0 Magnesium 1.8 Total Bilirubin 1.2 AST 39 ALT 21 Alkaline Phosphatase 202 H Total Protein 6.7 Albumin 3.4 Globulin 3.2 Albumin/Globulin Ratio 1.1 Triglycerides 49 Cholesterol 130 LDL Cholesterol Direct 69 HDL Cholesterol 40 TSH 3rd Generation 0.60 Urine Color Urine Appearance Urine pH Ur Specific [place] Urine Protein Urine Glucose (UA) Urine Ketones Urine Blood Urine Nitrate Urine Bilirubin Urine Urobilinogen Ur Leukocyte Esterase Urine RBC Urine WBC Ur Epithelial Cells Ur L.pneumophila Ag Assessment & Plan - Assessment and Plan (Free Text) Assessment: h/o Stage IV Sinus Carcinoma -Currently on Keytruda Admitted with SOB. Differential include pneumonia, Keytruda induced pneumonitis , infectious pneumonitis, malignancy etc. Started on steroids, antibiotics and bronchodilators. He is clinically stable and getting better now. Will continue current management. He will follow up with Dr. Cool as outpatient to decide on further treatment after discharge. His Hb is better after blood transfusion. Hb 9.6 today. He may benefit from IV iron/ erythropoeitic agents as outpatient. Continue to monitor blood counts daily. Thank you for the consult Joel Balbuena - Date & Time Date: 07/02/16 Time: 18:17
[2016-07-02] MEDS: Morphine 15 mg SR Tab PO PRN (20:41)
--- NOTE | 2016-07-02 22:51 | CP.PCM.PN ---
Subjective - Date & Time of Evaluation Date of Evaluation: 07/02/16 Time of Evaluation: 10:00 - Subjective Subjective: Patient with Stage IV head and neck Cancer admitted with B/L pneumonia, B/L lung masses. No fever. Responded to steroids. he was recently started on Keytruda that can cause autoimmune pneumonitis. Shortness of breath improved. No expectorant. On IV antibiotics. Pain controlled with current meds. Hemoglobin improved after PRBC transfusion. has malignancy induced cachexia. oral intake is fair. Objective - Vital Signs/Intake and Output Vital Signs (last 24 hours): Temp Pulse Resp BP Pulse Ox 98.7 F 102 H 20 120/77 96 07/02/16 18:58 07/02/16 18:58 07/02/16 18:58 07/02/16 18:58 07/02/16 06:00 - Medications Medications: Current Medications Acyclovir (Zovirax) 400 mg PO DAILY EDEL PRN Reason: Protocol Last Admin: 07/02/16 10:16 Dose: 400 mg Albuterol/Ipratropium (Duoneb 3 Mg/0.5 Mg (3 Ml) Ud) 3 ml IH [id number] PRN PRN Reason: Shortness of Breath Last Admin: 07/01/16 16:46 Dose: 3 ml Calcium Carbonate (Oscal) 1,000 mg PO DAILY [facility] Last Admin: 07/02/16 10:16 Dose: 1,000 mg Famotidine (Pepcid) 20 mg IVP DAILY [facility] Last Admin: 07/02/16 14:19 Dose: 20 mg Furosemide (Lasix) 40 mg IV DAILY EDEL Stop: 07/03/16 23:59 Last Admin: 07/02/16 10:57 Dose: 40 mg Furosemide (Lasix) 40 mg PO DAILY [facility] Home Med (Home Med) 1 unit PO DAILY [facility] Last Admin: 07/02/16 17:36 Dose: Not Given Sodium Chloride (Sodium Chloride 0.9%) 1,000 mls @ 100 mls/hr IV .Q10H EDEL Last Admin: 07/02/16 20:41 Dose: 100 mls/hr Doxycycline Hyclate 100 mg/ (Sodium Chloride) 100 mls @ 100 mls/hr IVPB Q12 EDEL PRN Reason: Protocol Stop: 07/08/16 22:01 Last Admin: 07/02/16 22:28 Dose: 100 mls/hr Cefepime HCl (Maxipime 1gm) 1 gm in 100 mls @ 100 mls/hr IVPB Q8 EDEL PRN Reason: Protocol Last Admin: 07/02/16 22:27 Dose: 100 mls/hr Lactulose (Enulose) 30 gm PO HS [facility] Last Admin: 07/02/16 22:27 Dose: 30 gm Methylprednisolone (Solu-Medrol) 30 mg IVP Q12 [facility] Last Admin: 07/02/16 22:28 Dose: 30 mg Morphine Sulfate (Morphine Extended Release Tab) 15 mg PO Q12 PRN PRN Reason: Pain, severe (8-10) Last Admin: 07/02/16 20:41 Dose: 15 mg Multivitamins (Thera Tab) 1 tab PO DAILY [facility] Last Admin: 07/02/16 10:16 Dose: 1 tab Oxycodone HCl (Oxycodone Immediate Release Tab) 20 mg PO Q4H PRN PRN Reason: Pain, moderate (4-7) Last Admin: 07/02/16 19:00 Dose: 20 mg Polyethylene Glycol (Miralax) 17 gm PO DAILY PRN PRN Reason: Constipation Tamsulosin HCl (Flomax) 0.4 mg PO DAILY [facility] Last Admin: 07/02/16 10:16 Dose: 0.4 mg - Labs Labs: 07/02/16 06:30 07/02/16 06:30 PT 13.4 Seconds (9.9-11.8) H 07/01/16 09:00 INR 1.24 (0.93-1.08) H 07/01/16 09:00 APTT 32.2 Seconds (23.7-30.8) H 07/01/16 09:00 - Constitutional Appears: Cachectic - Head Exam Head Exam: ATRAUMATIC, NORMAL INSPECTION, NORMOCEPHALIC - Eye Exam Eye Exam: Normal appearance Pupil Exam: NORMAL ACCOMODATION - ENT Exam ENT Exam: Mucous Membranes Moist, Normal Exam - Neck Exam Neck Exam: Full ROM, Normal Inspection - Respiratory Exam Respiratory Exam: Rales, Rhonchi, Respiratory Distress, NORMAL BREATHING PATTERN - Cardiovascular Exam Cardiovascular Exam: REGULAR RHYTHM, +S1, +S2 - GI/Abdominal Exam GI & Abdominal Exam: Soft, Normal Bowel Sounds - Extremities Exam Extremities Exam: Normal Capillary Refill, Normal Inspection - Back Exam Back Exam: NORMAL INSPECTION - Neurological Exam Neurological Exam: Alert, Awake, CN II-XII Intact, Normal Gait, Oriented x3 - Psychiatric Exam Psychiatric exam: Normal Affect, Normal Mood - Skin Skin Exam: Intact, Normal Color, Warm Assessment and Plan - Assessment and Plan (Free Text) Assessment: 1. Stage IV Head and neck Cancer : recently started on Keytruda. Autoimmune pneumonitis. On IV antibiotics as per ID. respiratory distress improved. Pulmonary consult Dr. Thrasher requested. Continue bronchodialtors. 2. Anemia : related to malignancy, iron deficiency, cachexia. s/p PRBC transfusion. Hb/Hct stable. 3. Cachexia : malignancy related. 4. pain : controlled on current meds. continue same regimen. 5. renal : BUN, creatinine normal. Thank you Dr. Mckeon for allowing us to participate in his care.
[2016-07-03] MEDS: oxyCODONE 20 mg Immediate Release Tab PO PRN ×5 (01:41→21:39)
--- NOTE | 2016-07-03 02:23 | CON ---
DATE: 07/02/2016 ADDENDUM The patient was seen and evaluated earlier. The patient is admitted with a history of head and neck cancer metastatic to the bone and lungs, had multiple chemotherapeutic regimen including Erbitux, rec ently on Keytruda. The patient is admitted with increased abdominal pain, shortness of breath. Admi tted with shortness of breath, constipation and weakness. The patient was found to have a low hemogl obin of 7.7 and has received the transfusion and appears more comfortable now. On examination abdome n is soft. No obvious tenderness. IMPRESSION: This 56-year-old patient with stave IV head and neck cancer with metastatic bilateral karo ng infiltrates admitted with severe anemia, status post transfusion and no obvious bleeding per rectu m. The patient is also constipated probably secondary to narcotics. RECOMMENDATIONS: 1. Continue the antibiotics present treatment. 2. The patient does have significant anemia in this metastatic disease in patient. It would be reas onable to get a CT with p.o. contrast to further evaluate. The patient has been followed by the niranjan tologist. Thank you very much for allowing us to participate in the care of the patient. Ambika Block MD cc: [id number] TT: 07/03/2016 02:22:40 Confirmation # [id number] Dictation # [id number] an
[2016-07-03] MEDS: Cefepime 1gm in NS 100ml 1 GM/100 ML BAG IVPB SCH ×3 (05:59→21:31)
[2016-07-03 06:33] LABS: ADD MANUAL DIFF? NO
[2016-07-03 06:51] LABS: BASO # 0.01 K/mm3 (0.0-2.0); BASO % 0.2 % (0.0-3.0); EOS % 0.2 % (1.5-5.0); GRAN # 3.91 (1.4-6.5); GRAN % 68.5 % (50.0-68.0); HEMATOCRIT 28.4 % (42.0-52.0); LYMPH # 1.4 (1.2-3.4); LYMPH % 23.6 % (22.0-35.0); MEAN CELL VOLUME 83.8 fL (80.0-105.0); MEAN CORPUSCULAR HEMOGLOBIN 27.7 pg (25.0-35.0); MEAN CORPUSCULAR HGB CONC 33.1 g/dl (31.0-37.0); MEAN PLATELET VOLUME 9.6 fl (7.0-11.0); MONO # 0.4 (0.1-0.6); MONO % 7.5 % (1.0-6.0); PLATELET COUNT 144 10^3/uL (120.0-450.0); RED CELL DISTRIBUTION WIDTH 21.3 % (11.5-14.5); WHITE BLOOD COUNT 5.7 10^3/ul (4.5-11.0)
[2016-07-03] MEDS: Morphine 15 mg SR Tab PO PRN ×2 (06:56→17:53)
[2016-07-03] MEDS ORDERED: Barium Sulfate Susp 2.1% w/v, 2.0% w/w 450 mL Bottle PO ONE (06:56)
[2016-07-03 07:25] LABS: BLOOD UREA NITROGEN 15 mg/dL (7-21); CALCIUM 7.2 mg/dL (8.4-10.5); CARBON DIOXIDE 23 mmol/L (21-33); CHLORIDE 109 mmol/L (98-107); GFR AFRICAN-AMERICAN > 60; GLUCOSE,RANDOM 101 mg/dL (70-110); MAGNESIUM 1.9 mg/dL (1.7-2.2); PHOSPHOROUS 3.1 mg/dL (2.5-4.5); POTASSIUM 4.2 mmol/L (3.6-5.0); SODIUM 138 mmol/L (132-148)
[2016-07-03] MEDS: DUTASTERIDE 0.5 MG PO SCH ×2 (10:15→14:41)
[2016-07-03] MEDS: MethylPREDNISolone 40 mg Vial IVP SCH ×2 (10:19→21:31)
[2016-07-03] MEDS: Multivitamin Therapeutic Tab PO SCH (10:19)
[2016-07-03] MEDS ORDERED: DUTASTERIDE 0.5 MG PO SCH (10:25)
[2016-07-03] MEDS: Sodium Chloride 0.9% 1,000 ML IV SCH (10:32)
--- NOTE | 2016-07-03 12:00 | CON ---
DATE: 07/03/2016 We were asked by Dr. Mckeon, oral hygienist, to evaluate and treat this 56-year-old man who was admitted to [facility] with chief complaint of cough and shortness of breath. The patient was seen and evaluated by Dr. Parker, director of intensive care unit, who found that patient is not requiring intensive care unit and therefore, he was transferred to the floor. Currently, is being evaluated on the medical floor. HISTORY OF PRESENT ILLNESS: The patient is known with history of sinus cancer, metastasis to lungs a nd bones. He presented to Emergency Room with shortness of breath, which developed over the past wee k. He also heard wheezing. He had some fevers, but this was not well documented. Occasional cough. PAST MEDICAL HISTORY: Hypertension, sinus cancer with metastasis. SOCIAL HISTORY: The patient is a lifelong smoker, no alcohol, no illicit drugs. FAMILY HISTORY: Noncontributory. No history of inherited diseases. ALLERGIES: No known allergies. HOME MEDICATIONS: Include oxycodone, PhosLo, multivitamins, Zovirax, calcium, Megace and acyclovir. REVIEW OF SYSTEMS: Conducted by reviewing all sources: RESPIRATORY: See history of present illness. CARDIOVASCULAR: Negative for chest pain or palpitations. GASTROINTESTINAL: Negative for nausea, vomiting or diarrhea. The rest of the systems were reviewed and found to be negative. PHYSICAL EXAMINATION: VITAL SIGNS: His heart rate 115, blood pressure 106/57, respirations 20, oxygen saturation is 100% o n 2 liters. HEAD: Atraumatic and normocephalic. LUNGS: Few rhonchi at bases. No wheezing. HEART: Regular rate and rhythm. S1, S2. GASTROINTESTINAL: Soft, nontender, no organomegaly. EXTREMITIES: No pedal edema. NEUROLOGIC: Limited at present time. SKIN: Clear with no cyanosis and no skin rash. NEUROLOGIC: No focal deficits. LABORATORY DATA: ProBNP is 313, slightly elevated. Electrolytes were within normal limits. Kidney functions are normal. Liver function test slightly elevated. Serum lactate is normal. CAT scan revealed ground glass opacities bilaterally and few areas of patchy consolidations. No pulm onary emboli. ASSESSMENT: The patient presents with a picture of community-acquired pneumonia in the setting of re cent chemotherapy and metastatic cancer. At the present time, he is mildly tachycardic and tachypnei c. Telemetry was considered most appropriate. He was started on broad spectrum antibiotic. Will fo llow blood cultures, urine cultures. His pulmonary status is currently stable. He does not have res piratory insufficiency. His oxygen saturations are acceptable. He does not need ICU at this time. I have reviewed this with Dr. Parker. We will follow closely. Tyrell Sow MD cc: [id number] TT: 07/03/2016 11:57:37 Confirmation # [id number] Dictation # [id number] en 07/03/2016 10:59:09
--- NOTE | 2016-07-03 15:01 | CT ---
PROCEDURE: CT Abdomen and Pelvis with contrast HISTORY: H N cancer,severe anemia r/o intra abd mass COMPARISON: None. TECHNIQUE: Contrast dose: Oral contrast only. Radiation dose: Total exam DLP = 249.87 mGy-cm. This CT exam was performed using one or more of the following dose reduction techniques: Automated exposure control, adjustment of the mA and/or kV according to patient size, and/or use of iterative reconstruction technique. FINDINGS: LOWER THORAX: Incompletely visualized infiltrates both lower lobes. Small bilateral pleural effusions left larger than right. LIVER: Low-attenuation lesion in the dome of the liver incompletely visualized measuring approximately 2 cm. No additional hepatic masses identified. GALLBLADDER AND BILE DUCTS: Vicarious excretion of contrast in the gallbladder related to recent contrast-enhanced CT. PANCREAS: Unremarkable. No gross lesion or ductal dilatation. SPLEEN: Unremarkable. ADRENALS: Unremarkable. No mass. KIDNEYS AND URETERS: Distention of the collecting systems bilaterally. No focal upper tract abnormality identified. The ureters are not dilated in their course. Multiple small central calculi in the left kidney/collecting system. No visible right renal calculi. VASCULATURE: Unremarkable. No aortic aneurysm. BOWEL: Unremarkable. No obstruction. No gross mural thickening. APPENDIX: Normal appendix. PERITONEUM: Unremarkable. No free fluid. No free air. LYMPH NODES: Unremarkable. No enlarged lymph nodes. BLADDER: Large right posterior lateral bladder diverticulum measures 3 x 5.5 cm. REPRODUCTIVE: Unremarkable. BONES: Widely disseminated sclerotic metastatic disease affecting the visualized thoracolumbar vertebral bodies ribs, pelvis including sacrum, both iliac bones, proximal femurs. Lytic lesions identified in the right acetabulum, sacrum. OTHER FINDINGS: 1.5 cm mass interposed between the gluteal muscles and the skin on the right side. IMPRESSION: 1. Widely disseminated primarily sclerotic metastatic disease visualize ribs, thoracolumbar vertebral bodies, sacrum, up pelvis proximal femurs. 2. Nonobstructing calculi left kidney. Bilateral hydronephrosis and hydroureter. Markedly distended urinary bladder without focal abnormality. Large posterior lateral right bladder diverticulum. 3. Suspicious finding in the dome of the liver for mass/metastasis. This measures approximately 2 cm. Please refer to coronal series 601, image 52. Additional benign and/or incidental findings described above.
--- NOTE | 2016-07-03 16:27 | CP.PCM.PN ---
Subjective - Date & Time of Evaluation Date of Evaluation: 07/03/16 Time of Evaluation: 10:45 - Subjective Subjective: Seen and examined this am he was drinking oral contrast for ct scan. SOB a little better, no resp distress. Abdominal pain better, no diarrhea, or GI bleeding. No chest pain. Objective - Vital Signs/Intake and Output Vital Signs (last 24 hours): Temp Pulse Resp BP Pulse Ox 98.6 F 87 18 135/91 H 100 07/03/16 06:00 07/03/16 06:00 07/03/16 06:00 07/03/16 10:15 07/03/16 06:00 Intake and Output: 07/03/16 07/03/16 06:59 18:59 Intake Total 250 Output Total 500 Balance -250 - Medications Medications: Current Medications Acyclovir (Zovirax) 400 mg PO DAILY EDEL PRN Reason: Protocol Last Admin: 07/03/16 10:18 Dose: 400 mg Albuterol/Ipratropium (Duoneb 3 Mg/0.5 Mg (3 Ml) Ud) 3 ml IH [id number] PRN PRN Reason: Shortness of Breath Last Admin: 07/01/16 16:46 Dose: 3 ml Calcium Carbonate (Oscal) 1,000 mg PO DAILY [facility] Last Admin: 07/03/16 10:16 Dose: 1,000 mg Famotidine (Pepcid) 20 mg IVP DAILY [facility] Last Admin: 07/03/16 10:21 Dose: 20 mg Furosemide (Lasix) 40 mg IV DAILY EDEL Stop: 07/03/16 23:59 Last Admin: 07/03/16 10:15 Dose: 40 mg Furosemide (Lasix) 40 mg PO DAILY [facility] Home Med (Home Med) 1 unit PO DAILY EDEL Last Admin: 07/03/16 14:41 Dose: 1 unit Sodium Chloride (Sodium Chloride 0.9%) 1,000 mls @ 100 mls/hr IV .Q10H EDEL Last Admin: 07/03/16 10:32 Dose: 100 mls/hr Doxycycline Hyclate 100 mg/ (Sodium Chloride) 100 mls @ 100 mls/hr IVPB Q12 EDEL PRN Reason: Protocol Stop: 07/08/16 22:01 Last Admin: 07/03/16 10:23 Dose: 100 mls/hr Cefepime HCl (Maxipime 1gm) 1 gm in 100 mls @ 100 mls/hr IVPB Q8 EDEL PRN Reason: Protocol Last Admin: 07/03/16 14:41 Dose: 100 mls/hr Lactulose (Enulose) 30 gm PO HS [facility] Last Admin: 07/02/16 22:27 Dose: 30 gm Methylprednisolone (Solu-Medrol) 30 mg IVP Q12 [facility] Last Admin: 07/03/16 10:19 Dose: 30 mg Morphine Sulfate (Morphine Extended Release Tab) 15 mg PO Q12 PRN PRN Reason: Pain, severe (8-10) Last Admin: 07/03/16 06:56 Dose: 15 mg Multivitamins (Thera Tab) 1 tab PO DAILY [facility] Last Admin: 07/03/16 10:19 Dose: 1 tab Oxycodone HCl (Oxycodone Immediate Release Tab) 20 mg PO Q4H PRN PRN Reason: Pain, moderate (4-7) Last Admin: 07/03/16 15:47 Dose: 20 mg Polyethylene Glycol (Miralax) 17 gm PO DAILY PRN PRN Reason: Constipation Tamsulosin HCl (Flomax) 0.4 mg PO DAILY [facility] Last Admin: 07/03/16 10:14 Dose: 0.4 mg - Labs Labs: 07/03/16 05:30 07/03/16 05:30 PT 13.4 Seconds (9.9-11.8) H 07/01/16 09:00 INR 1.24 (0.93-1.08) H 07/01/16 09:00 APTT 32.2 Seconds (23.7-30.8) H 07/01/16 09:00 - Constitutional Appears: No Acute Distress - Head Exam Head Exam: NORMAL INSPECTION - Eye Exam Eye Exam: Normal appearance. absent: Scleral icterus - Respiratory Exam Respiratory Exam: Decreased Breath Sounds, Rhonchi, NORMAL BREATHING PATTERN. absent: Wheezes, Respiratory Distress - GI/Abdominal Exam GI & Abdominal Exam: Soft, Hyperactive Bowel Sounds, Normal Bowel Sounds. absent: Guarding, Tenderness, Rebound - Neurological Exam Neurological Exam: Alert, Awake, Oriented x3 - Skin Skin Exam: Dry, Warm Assessment and Plan - Assessment and Plan (Free Text) Assessment: ASSESSMENT: Stage IV head and neck cancer with metastasis. Bilateral lung infiltrates Anemia, status post blood transfusion Constipation Liver lesion on ct scan PLAN: trend H and H. on IV antibiotics -- cefepime, doxycycline. continue bowel regimen lactulose and MiraLax on morphine for pain diet as tolerated continue Pepcid BID review ct scan A&P as per oncology, ID,cardiology, pulmo Seen and discussed with Dr. Martinez. CT scan: suspicious liver mass/metastasis, sclecrotic metestatic disease, nonobstructing l renal calculi, bilateral hydronephrosis. mass on right gluteal between the skin.
--- NOTE | 2016-07-03 19:38 | PN ---
DATE: 07/03/2016 SUBJECTIVE: He is comfortable today. Shortness of breath has markedly improved, currently on IV anabel roids. He received recently chemotherapy with Keytruda and presented with bilateral pneumonia, hypox ia, bilateral lung masses. He had a CAT scan of the abdomen done today, which showed a 2 cm lesion i n the liver, suspicious for metastatic disease. He has extensive metastatic disease in the ____ bone s. He also had severe anemia on admission, received 2 units of blood transfusion. Currently hemoglo bin and hematocrit have been stable. He has bony pains for which he is getting morphine and oxycodon e. Pain is fairly controlled with current regimen. REVIEW OF SYSTEMS: As per HPI. Rest of 12-point review of systems reviewed negative. PHYSICAL EXAMINATION: GENERAL: Comfortable in bed, in no acute distress, cachexia plus. VITAL SIGNS: Temperature 98.8, heart rate is 100 per minute, blood pressure 120/77, pulse ox is 98% on oxygen by nasal cannula. HEENT: Facial surgery scar present on the right side. Oral mucosa moist. No lesions in the oral ca vity. NECK: Lymphadenopathy none. CARDIOVASCULAR: S1, S2 normal, tachycardia plus. CHEST: Bilateral crepitations decreased, bilateral rhonchi decreased. ABDOMEN: Soft, nontender, no hepatosplenomegaly. EXTREMITIES: No edema. LABORATORY DATA: White count 5.7, hemoglobin 9.4, hematocrit 28.4, platelet count 144, granulocytes 68%. Sodium 138, potassium 4.2, calcium 7.2. MEDICATIONS: Zovirax 400 daily, DuoNeb p.r.n., Os-Kip 1000 mg daily, Maxipime, doxycycline, Pepcid 2 0 mg daily, Lasix 40 mg daily, lactulose at bedtime, Solu-Medrol 30 q. 12, morphine 15 mg q. 12 hour s p.r.n., oxycodone p.r.n., MiraLax, Flomax. ASSESSMENT: 1. Stage IV head and neck cancer. 2. Bilateral pneumonitis likely auto immune, related to Keytruda chemotherapy. 3. Severe anemia. 4. Cachexia, malignancy induced. 5. Pain, bony pain due to metastatic disease. PLAN: Blood counts are currently stable. Pulmonary status improved with IV steroids. We will letty nue to taper Solu-Medrol, from tomorrow will do 20 b.i.d. He will need 4-6 weeks of steroids for aut oimmune pneumonitis related to Keytruda. He is currently on IV antibiotic with cefepime and doxycycl ine as per ID, recommend to continue that. Continue bronchodilators. Hemoglobin and hematocrit have been stable. Pain well controlled with the current medication regimen. He has chronic constipation , currently on lactulose and MiraLax. Thank you, Dr. Mckeon, for allowing us to participate in the patient's care. Hillary Ardon MD cc: [id number] TT: 07/03/2016 19:38:10 Confirmation # [id number] Dictation # [id number] jn
--- NOTE | 2016-07-03 21:02 | CP.PCM.PN ---
Subjective - Date & Time of Evaluation Date of Evaluation: 07/03/16 Time of Evaluation: 10:30 - Subjective Subjective: Comfortable, still with some shortness of breath at rest, no fevers overnight. Objective - Vital Signs/Intake and Output Vital Signs (last 24 hours): Temp Pulse Resp BP Pulse Ox 98.2 F 88 20 102/68 99 07/03/16 16:00 07/03/16 16:00 07/03/16 16:00 07/03/16 16:00 07/03/16 16:00 - Medications Medications: Current Medications Acyclovir (Zovirax) 400 mg PO DAILY EDEL PRN Reason: Protocol Last Admin: 07/03/16 10:18 Dose: 400 mg Albuterol/Ipratropium (Duoneb 3 Mg/0.5 Mg (3 Ml) Ud) 3 ml IH [id number] PRN PRN Reason: Shortness of Breath Last Admin: 07/01/16 16:46 Dose: 3 ml Calcium Carbonate (Oscal) 1,000 mg PO DAILY [facility] Last Admin: 07/03/16 10:16 Dose: 1,000 mg Famotidine (Pepcid) 20 mg IVP DAILY [facility] Last Admin: 07/03/16 10:21 Dose: 20 mg Furosemide (Lasix) 40 mg IV DAILY EDEL Stop: 07/03/16 23:59 Last Admin: 07/03/16 10:15 Dose: 40 mg Furosemide (Lasix) 40 mg PO DAILY [facility] Home Med (Home Med) 1 unit PO DAILY [facility] Last Admin: 07/03/16 14:41 Dose: 1 unit Sodium Chloride (Sodium Chloride 0.9%) 1,000 mls @ 100 mls/hr IV .Q10H [facility] Last Admin: 07/03/16 10:32 Dose: 100 mls/hr Doxycycline Hyclate 100 mg/ (Sodium Chloride) 100 mls @ 100 mls/hr IVPB Q12 EDEL PRN Reason: Protocol Stop: 07/08/16 22:01 Last Admin: 07/03/16 10:23 Dose: 100 mls/hr Cefepime HCl (Maxipime 1gm) 1 gm in 100 mls @ 100 mls/hr IVPB Q8 EDEL PRN Reason: Protocol Last Admin: 07/03/16 14:41 Dose: 100 mls/hr Lactulose (Enulose) 30 gm PO HS [facility] Last Admin: 07/02/16 22:27 Dose: 30 gm Methylprednisolone (Solu-Medrol) 30 mg IVP Q12 [facility] Last Admin: 07/03/16 10:19 Dose: 30 mg Morphine Sulfate (Morphine Extended Release Tab) 15 mg PO Q12 PRN PRN Reason: Pain, severe (8-10) Last Admin: 07/03/16 17:53 Dose: 15 mg Multivitamins (Thera Tab) 1 tab PO DAILY [facility] Last Admin: 07/03/16 10:19 Dose: 1 tab Oxycodone HCl (Oxycodone Immediate Release Tab) 20 mg PO Q4H PRN PRN Reason: Pain, moderate (4-7) Last Admin: 07/03/16 15:47 Dose: 20 mg Polyethylene Glycol (Miralax) 17 gm PO DAILY PRN PRN Reason: Constipation Tamsulosin HCl (Flomax) 0.4 mg PO DAILY [facility] Last Admin: 07/03/16 10:14 Dose: 0.4 mg - Labs Labs: 07/03/16 05:30 07/03/16 05:30 PT 13.4 Seconds (9.9-11.8) H 07/01/16 09:00 INR 1.24 (0.93-1.08) H 07/01/16 09:00 APTT 32.2 Seconds (23.7-30.8) H 07/01/16 09:00 - Constitutional Appears: Non-toxic, No Acute Distress - Head Exam Head Exam: NORMAL INSPECTION - Neck Exam Neck Exam: absent: Lymphadenopathy, Meningismus - Respiratory Exam Respiratory Exam: Decreased Breath Sounds - Cardiovascular Exam Cardiovascular Exam: +S1, +S2 - GI/Abdominal Exam GI & Abdominal Exam: Soft. 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
--- NOTE | 2016-07-03 21:43 | PN ---
DATE: 07/03/2016 The patient is in room 572, bed 1. REASON FOR CONSULTATION: Shortness of breath, rule out congestive heart failure, severe anemia, stat us post blood transfusion. 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 The patient received blood transfusions. The patient now feels better. He denies chest pain. His breathing is also bet ter. Denies any palpitations. The patient had RONEY on 11/22 2015 that showed EF 65%, trace aortic re gurgitation, tricuspid regurgitation, RV systolic pressure 28, moderate mitral regurgitation, history of pacemaker insertion. The patient is lying flat in bed without shortness of breath. PHYSICAL EXAMINATION: VITAL SIGNS: Blood pressure 102/68, respirations 20, pulse 88, temperature 98.2. HEAD: Normocephalic. EYES: Pupils normal. Conjunctivae slightly pale. NECK: JVP low. Carotid equal. THORAX: AP diameter normal. LUNGS: Basal rales present. CARDIOVASCULAR: S1, S2. ABDOMEN: Soft, nontender, no organomegaly. EXTREMITIES: No clubbing, no cyanosis. LABORATORY DATA: WBC 5.7, hemoglobin 9.4, hematocrit 28.4, platelets 144. Sodium 138, potassium 4.2 , BUN 15, creatinine 0.7, random glucose 101, total calcium 7.2, phosphorus 3.1, magnesium 1.9, total protein 6.7, albumin 3.4. DIAGNOSES: Anemia, status post RBC transfusion, decompensated congestive heart failure secondary to anemia, diastolic dysfunction, preserved left ventricular function, moderate mitral regurgitation, tr icuspid regurgitation, ejection fraction 65% on RONEY on 11/22/2015, and right ventricular systolic pre ssure of 26 mmHg, squamous cell carcinoma of the maxillary sinuses, . PLAN: The patient is getting doxycycline hyclate 100 mg IV q.12 hours, furosemide 40 mg IV daily, wh ich will be changed to 40 mg p.o. daily starting tomorrow; cefepime 1 gram IV q.8 hours, Pepcid 20 mg IV daily, Solu-Medrol 30 mg IV q.12 hours, Zovirax 400 mg p.o. daily. Will continue present therapy . Will follow with you. Derrick Nickerson MD cc: [id number] TT: 07/03/2016 21:42:46 Confirmation # [id number] Dictation # [id number]
--- NOTE | 2016-07-03 23:51 | HP ---
CHIEF COMPLAINT AND HISTORY OF PRESENT ILLNESS: This is a 56-year-old male [facility]. He has a past medical history of stage IV head and neck cancer. Th e patient has been following with Dr. Cool in [place] for his treatment. The patient was admitt ed to the hospital after he had a CT of the chest done showing that he had multiple densities in his lungs. There were multifocal right middle and right upper lobe ground glass opacities and left upper lobe ground glass opacity. There was pleural-based soft tissue mass in the medial left upper lobe a nd he was admitted for further evaluation. He denied any headaches or dizziness, no nausea, no vomit ing. ALLERGIES: No known drug allergies. MEDICATIONS: Reviewed in the medication listing. PHYSICAL EXAMINATION: VITAL SIGNS: Temperature is 98.6, pulse of 87, blood pressure 114/72, respirations 18, O2 saturation 100%. GENERAL: The patient comfortable, in no acute distress. HEENT: Anicteric sclerae. Moist mucosa. NECK: No JVD or adenopathy. CARDIAC: S1/S2. No murmurs. No rubs. Regular. RESPIRATORY: Clear to auscultation bilaterally. No wheezes, rales, or rhonchi. Good air entry. ABDOMEN: Bowel sounds are positive, soft, nontender, and nondistended. EXTREMITIES: No edema. Has 1+ pulses. ASSESSMENT: 1. Hospital-acquired pneumonia versus metastatic lesions. 2. Constipation. 3. Stage IV head and neck cancer. 4. Anemia, multifactorial. 5. There is possible metastatic disease in the liver, nephrolithiasis. PLAN: The patient is going to be admitted to the hospital. He is on IV antibiotics. The patient is on doxycycline for antibiotics. He is going to continue with Lasix. He is on polyethylene glycol f or constipation. The patient is on calcium carbonate. He is going to continue with IV fluids. He i s on acyclovir. He is going to be followed by infectious disease, Dr. Figueroa. I will also get [employer] to follow for his anemia. The patient is currently comfortable. He had a CT of the abdo men and pelvis that was done yesterday that had showed a 1.5 cm mass interposed between the gluteal m uscles and the skin. There were also suspicious findings of the dome of the liver for metastatic dis ease. There is a nonobstructing calculi in the left kidney. We will continue to follow closely. José Mckeon MD cc: [id number] TT: 07/03/2016 23:51:23 mn
[2016-07-04] MEDS: Sodium Chloride 0.9% 1,000 ML IV SCH ×3 (01:15→13:20)
--- NOTE | 2016-07-04 01:45 | PN ---
DATE: 07/03/2016 ADDENDUM: This is an addendum to the GI progress report dictated by [employer], Mila Hinton APN. The patient is much more comfortable. He did receive 2 units of packed RBCs. The hemoglobin is down to 9.4. The CT scan was reviewed. The patient also found to have a lesion in the liver. On examination, the abdomen is soft. There was no tenderness. IMPRESSION: Metastatic head and neck cancer. The patient is being followed. The plan is to continue the more conservative management with PPI. Continue the PPI. Follow up of the hemoglobin and hematocrit. This is an addendum to the GI progress report dictated by Mila Hinton APN. Ambika Block MD cc: [id number] TT: 07/04/2016 01:44:25 Confirmation # [id number] Dictation # [id number] phil SZYMANSKI
[2016-07-04] MEDS: oxyCODONE 20 mg Immediate Release Tab PO PRN (04:30)
[2016-07-04] MEDS: Cefepime 1gm in NS 100ml 1 GM/100 ML BAG IVPB SCH ×2 (05:32→14:01)
[2016-07-04] MEDS ORDERED: Albuterol-Ipratrop 3 mg / 0.5 (3 ml) UD IH PRN (07:31)
[2016-07-04] MEDS ORDERED: Albuterol-Ipratrop 3 mg / 0.5 (3 ml) UD IH SCH (08:00)
[2016-07-04] MEDS: Morphine 15 mg SR Tab PO PRN (08:50)
--- NOTE | 2016-07-04 08:56 | PN ---
DATE: 07/04/2016 SUBJECTIVE: The patient has no complaints of any chest pain. No shortness of breath, no headaches, no dizziness. He says he is feeling better. He is asking about going home. PHYSICAL EXAMINATION: VITAL SIGNS: Temperature is 98.3, pulse is 71, blood pressure is 96/65, respirations 18, O2 saturati on 97%.. GENERAL: The patient comfortable, in no acute distress. HEENT: Anicteric sclerae. Moist mucosa. NECK: No JVD or adenopathy. CARDIAC: S1/S2. No murmurs. No rubs. Regular. RESPIRATORY: Clear to auscultation bilaterally. No wheezes, rales, or rhonchi. Good air entry. ABDOMEN: Bowel sounds are positive, soft, nontender, and nondistended. EXTREMITIES: No edema. Has 1+ pulses. ASSESSMENT: 1. Hospital-acquired pneumonia. 2. Constipation. 3. Stage IV head and neck cancer. 4. Anemia, multifactorial. 5. Probable liver metastasis. 6. Nephrolithiasis. PLAN: The patient is currently on day #3 of antibiotics out of 4. He is going to continue on doxycy moore and cefepime. The patient has blood cultures and urine cultures that are negative. He is aski ng about being discharged and I believe he can be discharged tomorrow after his antibiotics and be sw itched over to p.o. antibiotics, probably doxycycline. The patient is on Flomax for his BPH. He is on morphine for pain. He is receiving Os-Kip. He is receiving Pepcid. The patient is on steroids. He is on acyclovir prophylaxis. CONDITION: Stable. ACTIVITIES: Increase as tolerated. José Mckeon MD cc: [id number] TT: 07/04/2016 08:55:26 Confirmation # [id number] Dictation # [id number] tn
[2016-07-04 09:15] LABS: ADD MANUAL DIFF? NO
[2016-07-04 09:18] LABS: BASO # 0.04 K/mm3 (0.0-2.0); BASO % 0.6 % (0.0-3.0); EOS % 0.3 % (1.5-5.0); GRAN % 59.4 % (50.0-68.0); HEMATOCRIT 30.1 % (42.0-52.0); MEAN CELL VOLUME 84.3 fL (80.0-105.0); MEAN CORPUSCULAR HEMOGLOBIN 27.7 pg (25.0-35.0); MEAN CORPUSCULAR HGB CONC 32.9 g/dl (31.0-37.0); MEAN PLATELET VOLUME 9.1 fl (7.0-11.0); MONO # 0.9 (0.1-0.6); MONO % 11.7 % (1.0-6.0); PLATELET COUNT 135 10^3/uL (120.0-450.0); RED CELL DISTRIBUTION WIDTH 20.9 % (11.5-14.5); WHITE BLOOD COUNT 7.2 10^3/ul (4.5-11.0)
--- NOTE | 2016-07-04 09:29 | PN ---
DATE: 07/04/2016 SUBJECTIVE: The patient appears comfortable this morning. He is not short of breath at rest. He is cachectic. OBJECTIVE: VITAL SIGNS: 98.3-71-18-116/69. room air oxygen saturation-97%. HEENT: Normocephalic, atraumatic. No JVD. CARDIOVASCULAR: Positive S1, S2. No S3. LUNGS: Minimal crackles at the bases. Minimal rhonchi. No wheezing. EXTREMITIES: No clubbing, cyanosis, or edema. Calves are nontender to palpation. GASTROINTESTINAL: Abdomen is soft, nontender, nondistended. Bowel sounds are positive. SKIN: No acute rash. NEUROLOGIC: Limited at the present time. IMPRESSION: 1. Community-acquired pneumonia. 2. Mild bronchospasm. 3. Advanced head and neck cancer - with extensive bone and lung metastasis. 4. Anemia. 5. Cachexia. PLAN: The patient appears comfortable this morning. He is not short of breath at rest. He does state to feeling much better overall. However, he does remain very cachectic looking. On physical exam, there is only mild bronchospasm appreciated. I will change the nebulizer treatments to a scheduled dosage and continue with the low-dose intravenous steroids. The patient remains on antibiotic therapy - as per infectious disease. There are no temperatures noted. There is no leukocytosis. Input by oncology is also noted. Clinical status of the patient is certainly improved - compared to the initial presentation. However, the overall status/prognosis of this patient remains poor. I will discuss the above with the attending physician. Derrick Thrasher MD cc: [id number] TT: 07/04/2016 09:01:43 Confirmation # [id number] Dictation # [id number] paulino SZYMANSKI
[2016-07-04] MEDS ORDERED: MethylPREDNISolone 40 mg Vial IVP SCH (10:00)
[2016-07-04] MEDS: DUTASTERIDE 0.5 MG PO SCH (10:14)
[2016-07-04] MEDS: Multivitamin Therapeutic Tab PO SCH (10:16)
--- NOTE | 2016-07-04 13:44 | PN ---
DATE: 07/04/2016 The patient is in room 572, bed 1. REASON FOR CONSULTATION AND FOLLOWUP: Shortness of breath, rule out congestive heart failure, severe anemia, status post blood transfusion. 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 The patient received blo od transfusion. The patient is now feeling better. Denies chest pain. His breathing also improved. Denies palpitation. The patient had RONEY on 11/22/2015 that showed ejection fraction of 65%, RV sys tolic pressure 28, moderate mitral regurgitation, status post pacemaker insertion. PHYSICAL EXAMINATION: VITAL SIGNS: Blood pressure 116/69, respirations 18, pulse 71, temperature 98.3. HEAD: Normocephalic. EYES: Pupils normal. Conjunctivae are slightly pale. NECK: JVP low. Carotids equal. THORAX: AP diameter normal. LUNGS: No rales. CARDIOVASCULAR: S1, S2. ABDOMEN: Soft, nontender, no organomegaly. Bowel sounds normal. EXTREMITIES: No clubbing, no cyanosis. LABORATORY DATA: WBC 7.2, hemoglobin 9.9, hematocrit 30.1, platelet 135. Sodium 138, potassium 4.2, BUN 15, creatinine 0.7, calcium 7.2, phosphorus 3.1, magnesium 1.9. DIAGNOSES: Anemia, status post RBC transfusion, decompensated congestive heart failure secondary to anemia and diastolic dysfunction, preserved left ventricular systolic function. On RONEY, ejection fra ction of 65%, moderate mitral regurgitation, tricuspid regurgitation. RONEY was done 11/22/2015. 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 PLAN: The patient on vibramycin IV q. 12 hours at 100 mg, DuoNeb hand nebulizer therapy, furosemide 40 p.o. daily, Maxipime 1 gram IV q. 8 hours. We will continue present therapy. Will follow with tremaine mota. Derrick Nickerson MD cc: [id number] TT: 07/04/2016 13:44:16 Confirmation # [id number] Dictation # [id number] rn
--- NOTE | 2016-07-04 16:07 | CP.PCM.PN ---
Subjective - Date & Time of Evaluation Date of Evaluation: 07/04/16 Time of Evaluation: 11:00 - Subjective Subjective: Seen and examined at bedside, SOB better, Abdominal discomfort under control, tolerating oral intake, no diarrhea or reports of overt GI bleed. No acute overnight events. Objective - Vital Signs/Intake and Output Vital Signs (last 24 hours): Temp Pulse Resp BP Pulse Ox 98.3 F 71 18 116/69 97 07/04/16 08:08 07/04/16 08:08 07/04/16 08:08 07/04/16 10:14 07/04/16 08:08 Intake and Output: 07/04/16 07/04/16 06:59 18:59 Intake Total 360 Output Total 300 Balance 60 - Medications Medications: Current Medications Acyclovir (Zovirax) 400 mg PO DAILY EDEL PRN Reason: Protocol Last Admin: 07/04/16 10:17 Dose: 400 mg Albuterol/Ipratropium (Duoneb 3 Mg/0.5 Mg (3 Ml) Ud) 3 ml IH [id number] EDEL Albuterol/Ipratropium (Duoneb 3 Mg/0.5 Mg (3 Ml) Ud) 3 ml IH Q2H PRN PRN Reason: Shortness of Breath Calcium Carbonate (Oscal) 1,000 mg PO DAILY [facility] Last Admin: 07/04/16 10:15 Dose: 1,000 mg Famotidine (Pepcid) 20 mg IVP DAILY [facility] Last Admin: 07/04/16 10:15 Dose: 20 mg Furosemide (Lasix) 40 mg PO DAILY [facility] Last Admin: 07/04/16 10:14 Dose: 40 mg Home Med (Home Med) 1 unit PO DAILY [facility] Last Admin: 07/04/16 10:14 Dose: 1 unit Sodium Chloride (Sodium Chloride 0.9%) 1,000 mls @ 100 mls/hr IV .Q10H [facility] Last Admin: 07/04/16 13:20 Dose: 100 mls/hr Doxycycline Hyclate 100 mg/ (Sodium Chloride) 100 mls @ 100 mls/hr IVPB Q12 EDEL PRN Reason: Protocol Stop: 07/08/16 22:01 Last Admin: 07/04/16 10:16 Dose: 100 mls/hr Cefepime HCl (Maxipime 1gm) 1 gm in 100 mls @ 100 mls/hr IVPB Q8 [facility] PRN Reason: Protocol Last Admin: 07/04/16 14:01 Dose: 100 mls/hr Lactulose (Enulose) 30 gm PO HS [facility] Last Admin: 07/03/16 21:31 Dose: 30 gm Methylprednisolone (Solu-Medrol) 20 mg IVP Q12 [facility] Last Admin: 07/04/16 10:16 Dose: 20 mg Morphine Sulfate (Morphine Extended Release Tab) 15 mg PO Q12 PRN PRN Reason: Pain, severe (8-10) Last Admin: 07/04/16 08:50 Dose: 15 mg Multivitamins (Thera Tab) 1 tab PO DAILY [facility] Last Admin: 07/04/16 10:16 Dose: 1 tab Oxycodone HCl (Oxycodone Immediate Release Tab) 20 mg PO Q4H PRN PRN Reason: Pain, moderate (4-7) Last Admin: 07/04/16 04:30 Dose: 20 mg Polyethylene Glycol (Miralax) 17 gm PO DAILY PRN PRN Reason: Constipation Tamsulosin HCl (Flomax) 0.4 mg PO DAILY [facility] Last Admin: 07/04/16 10:13 Dose: 0.4 mg - Labs Labs: 07/04/16 09:10 07/03/16 05:30 PT 13.4 Seconds (9.9-11.8) H 07/01/16 09:00 INR 1.24 (0.93-1.08) H 07/01/16 09:00 APTT 32.2 Seconds (23.7-30.8) H 07/01/16 09:00 - Constitutional Appears: No Acute Distress - Head Exam Head Exam: NORMOCEPHALIC - Eye Exam Eye Exam: Normal appearance. absent: Scleral icterus - ENT Exam ENT Exam: Mucous Membranes Moist - Neck Exam Neck Exam: absent: Tenderness - Respiratory Exam Respiratory Exam: Decreased Breath Sounds, NORMAL BREATHING PATTERN. absent: Rales, Wheezes, Respiratory Distress - Cardiovascular Exam Cardiovascular Exam: +S1, +S2 - GI/Abdominal Exam GI & Abdominal Exam: Soft, Normal Bowel Sounds. absent: Guarding, Tenderness, Rebound - Neurological Exam Neurological Exam: Alert, Awake, Oriented x3 - Skin Skin Exam: Dry, Warm Assessment and Plan - Assessment and Plan (Free Text) Assessment: ASSESSMENT: Stage IV head and neck cancer with metastasis. Bilateral lung infiltrates Anemia, status post blood transfusion resolved Constipation Liver lesion on ct scan PLAN: trend H and H, steady on IV antibiotics -- cefepime, doxycycline. continue bowel regimen lactulose and MiraLax on morphine for pain diet as tolerated continue Pepcid BID possible dc home later today, FU oncology Seen and discussed with Dr. Martinez.
--- NOTE | 2016-07-04 16:15 | CP.PCM.PN ---
Subjective - Date & Time of Evaluation Date of Evaluation: 07/04/16 Time of Evaluation: 16:08 - Subjective Subjective: As per PMD'S request patient was given prescriptions for the following meds: 1.Augmentin 875 mg po two times a day for 5 days 2.Doxycycline 100 mg po two times a day for 5 days. Objective - Vital Signs/Intake and Output Vital Signs (last 24 hours): Temp Pulse Resp BP Pulse Ox 98.3 F 71 18 116/69 97 07/04/16 08:08 07/04/16 08:08 07/04/16 08:08 07/04/16 10:14 07/04/16 08:08 Intake and Output: 07/04/16 07/04/16 06:59 18:59 Intake Total 360 Output Total 300 Balance 60 - Medications Medications: Current Medications Acyclovir (Zovirax) 400 mg PO DAILY EDEL PRN Reason: Protocol Last Admin: 07/04/16 10:17 Dose: 400 mg Albuterol/Ipratropium (Duoneb 3 Mg/0.5 Mg (3 Ml) Ud) 3 ml IH [id number] EDEL Albuterol/Ipratropium (Duoneb 3 Mg/0.5 Mg (3 Ml) Ud) 3 ml IH Q2H PRN PRN Reason: Shortness of Breath Calcium Carbonate (Oscal) 1,000 mg PO DAILY [facility] Last Admin: 07/04/16 10:15 Dose: 1,000 mg Famotidine (Pepcid) 20 mg IVP DAILY [facility] Last Admin: 07/04/16 10:15 Dose: 20 mg Furosemide (Lasix) 40 mg PO DAILY [facility] Last Admin: 07/04/16 10:14 Dose: 40 mg Home Med (Home Med) 1 unit PO DAILY [facility] Last Admin: 07/04/16 10:14 Dose: 1 unit Sodium Chloride (Sodium Chloride 0.9%) 1,000 mls @ 100 mls/hr IV .Q10H [facility] Last Admin: 07/04/16 13:20 Dose: 100 mls/hr Doxycycline Hyclate 100 mg/ (Sodium Chloride) 100 mls @ 100 mls/hr IVPB Q12 EDEL PRN Reason: Protocol Stop: 07/08/16 22:01 Last Admin: 07/04/16 10:16 Dose: 100 mls/hr Cefepime HCl (Maxipime 1gm) 1 gm in 100 mls @ 100 mls/hr IVPB Q8 EDEL PRN Reason: Protocol Last Admin: 07/04/16 14:01 Dose: 100 mls/hr Lactulose (Enulose) 30 gm PO HS [facility] Last Admin: 07/03/16 21:31 Dose: 30 gm Methylprednisolone (Solu-Medrol) 20 mg IVP Q12 [facility] Last Admin: 07/04/16 10:16 Dose: 20 mg Morphine Sulfate (Morphine Extended Release Tab) 15 mg PO Q12 PRN PRN Reason: Pain, severe (8-10) Last Admin: 07/04/16 08:50 Dose: 15 mg Multivitamins (Thera Tab) 1 tab PO DAILY [facility] Last Admin: 07/04/16 10:16 Dose: 1 tab Oxycodone HCl (Oxycodone Immediate Release Tab) 20 mg PO Q4H PRN PRN Reason: Pain, moderate (4-7) Last Admin: 07/04/16 04:30 Dose: 20 mg Polyethylene Glycol (Miralax) 17 gm PO DAILY PRN PRN Reason: Constipation Tamsulosin HCl (Flomax) 0.4 mg PO DAILY [facility] Last Admin: 07/04/16 10:13 Dose: 0.4 mg - Labs Labs: 07/04/16 09:10 07/03/16 05:30 PT 13.4 Seconds (9.9-11.8) H 07/01/16 09:00 INR 1.24 (0.93-1.08) H 07/01/16 09:00 APTT 32.2 Seconds (23.7-30.8) H 07/01/16 09:00
[2016-07-04 17:02] VITALS: BP 105/68; PULSE 62; RESP 20; TEMP 98.5; O2SAT 98
--- NOTE | 2016-07-04 18:12 | CP.PCM.PN ---
Subjective - Date & Time of Evaluation Date of Evaluation: 07/04/16 Time of Evaluation: 10:05 - Subjective Subjective: Comfortable, less shortness of breath, no fevers, feeling better. Objective - Vital Signs/Intake and Output Vital Signs (last 24 hours): Temp Pulse Resp BP Pulse Ox 98.5 F 62 20 105/68 98 07/04/16 16:00 07/04/16 16:00 07/04/16 16:00 07/04/16 16:00 07/04/16 16:00 Intake and Output: 07/04/16 07/04/16 06:59 18:59 Intake Total 360 Output Total 300 Balance 60 - Labs Labs: 07/04/16 09:10 07/03/16 05:30 PT 13.4 Seconds (9.9-11.8) H 07/01/16 09:00 INR 1.24 (0.93-1.08) H 07/01/16 09:00 APTT 32.2 Seconds (23.7-30.8) H 07/01/16 09:00 - Constitutional Appears: Non-toxic, No Acute Distress - Head Exam Head Exam: NORMAL INSPECTION - ENT Exam ENT Exam: Mucous Membranes Moist - Neck Exam Neck Exam: absent: Lymphadenopathy, Meningismus - Respiratory Exam Respiratory Exam: Decreased Breath Sounds - Cardiovascular Exam Cardiovascular Exam: +S1, +S2 - GI/Abdominal Exam GI & Abdominal Exam: Soft. 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
[2016-07-05 02:41] LABS: (1-3)-B-D GLUCAN 49 pg/mL
--- NOTE | 2016-09-01 09:36 | DS ---
DISCHARGE SUMMARY: Please see the dictated note on 07/04/2016. José Mckeon MD
== END 2016-07-04 17:05 | disposition home or self-care (01) | DRG 193 ==
LOC: ED 08:39 → ERH 11:31 → 2RNO 14:47 → 5RSO 07-03 07:15
PROVIDERS: ADMIT Internal Medicine Nephrology; ATTEND Internal Medicine Nephrology
PROC: 30233N1 Transfusion of Nonautologous Red Blood Cells into Peripheral Vein, Percutaneous Approach (ICD-10-PCS; principal; 2016-07-01)
DX: J18.9 Pneumonia, unspecified organism (principal); I50.33 Acute on chronic diastolic (congestive) heart failure; R64 Cachexia; C78.7 Secondary malignant neoplasm of liver and intrahepatic bile duct; C78.00 Secondary malignant neoplasm of unspecified lung; C79.51 Secondary malignant neoplasm of bone; E86.0 Dehydration; Z68.1 Body mass index [BMI] 19.9 or less, adult; C31.0 Malignant neoplasm of maxillary sinus; D63.0 Anemia in neoplastic disease; N20.0 Calculus of kidney; D50.9 Iron deficiency anemia, unspecified; G89.3 Neoplasm related pain (acute) (chronic); N40.0 Benign prostatic hyperplasia without lower urinary tract symptoms; J98.01 Acute bronchospasm; K59.03 Drug induced constipation; T40.605A Adverse effect of unspecified narcotics, initial encounter; I08.3 Combined rheumatic disorders of mitral, aortic and tricuspid valves; Y95 Nosocomial condition